=== PATIENT | male | born 1950 | race Caucasian/White ===

== ENCOUNTER 2018-02-17 11:32 | Observation (INO) | payer OTHER ==
[~2018-02-17] VITALS: Ht 180.3 cm; Wt 53.6 kg
[~2018-02-17 11:32] MED LIST: ACET325; ALBU90OI6 INH; ASPI325 PO; BEER; CEPH500 PO; CHLO25 PO; CLON.1 PO; CLOP75 PO; CYCL10 PO; DEPRESSION MED; DICL75ER; DOCU100 PO; GABA600 PO; HYDACE5 PO; LIDO5TP TOP; LOPE2C PO; LORA.5 PO; METCAR500; METO25ER PO; METO50 PO; METO50ER PO; MIRT15; MIRT15 PO; MIRT30; MIRT30ST; MULTCH; MULVITMINF PO; Naprosyn500 MG PO; Norco 10-325 T1 EACH PO; Norco 5-325 Ta1 EACH PO; OMEP20ER PO; OMEP40CA12 PO; ONDA4 PO; OXYACE7.5T PO; Omeprazole20 M1 PO; PROACE100 PO; PROM25 PO; RANI150; SUCR1SU PO; SULTRIDS PO; THIA100; TRAM50 PO; TRAZ50; TRAZ50 PO; UNKOWN B/P MED; Valium5 MG PO; [UNRECOGNIZED DRUG - CODE]; [UNRECOGNIZED DRUG - OTHER]; [UNRECOGNIZED DRUG - REMARK]
[2018-02-17] MEDS ORDERED: HYDR1TAB94 PO (11:42)
[2018-02-17] MEDS ORDERED: PRAZ1 PO (11:42)
[2018-02-17 12:08] LABS: BASOPHILS ABSOLUTE AUTO 0.03 K/mm3 (0.00-0.23); BASOPHILS PERCENT AUTO 0 % (0-2); EOSINOPHILS ABSOLUTE AUTO 0.07 K/mm3 (0.00-0.68); EOSINOPHILS PERCENT AUTO 1 % (0-6); IMMATURE GRAN ABSOLUTE AUTO 0.07 K/mm3 (0.00-0.10); IMMATURE GRAN PERCENT AUTO 1 % (0-1); LYMPHOCYTES ABSOLUTE AUTO 1.09 K/mm3 (0.84-5.20); LYMPHOCYTES PERCENT AUTO 9 % (21-46); MONOCYTES ABSOLUTE AUTO 1.54 K/mm3 (0.16-1.47); MONOCYTES PERCENT AUTO 13 % (4-13); Mean Corpuscular HGB 33.6 pg (26.0-34.0); Mean Corpuscular HGB Conc 33.3 g/dL (31.5-36.5); Mean Corpuscular Volume 101 fL (80-100); Mean Platelet Volume 10.9 fL (9.1-12.4); NEUTROPHILS ABSOLUTE AUTO 9.21 K/mm3 (1.96-9.15); NEUTROPHILS PERCENT AUTO 77 % (41-73); Platelet Count 293 K/mm3 (150-400); RDW Coefficient Variation 17.9 % (11.7-14.2); RDW Standard Deviation 65.8 fL (35.1-46.3); Red Blood Cell Count 3.57 M/mm3 (4.30-5.90); White Blood Cell Count 12.01 K/mm3 (4.00-11.30)
[2018-02-17 12:23] LABS: Alanine Aminotransfer (ALT/SGP 23 U/L (12-78); Albumin, Blood 3.1 g/dL (3.4-5.0); Albumin/Globulin Ratio 0.8 (0.8-1.8); Alk Phos 90 U/L (50-136); Anion Gap 7 mmol/L (6-16); Aspartate Aminotrans (AST/SGOT 25 U/L (12-37); Bilirubin, Total 0.3 mg/dL (0.1-1.0); Blood Urea Nitrogen 11 mg/dL (8-24); Bun/Creatinine Ratio 17.9 (12.0-20.0); CO2, Blood 29 mmol/L (21-32); Calcium, Blood 8.4 mg/dL (8.5-10.1); Chloride, Blood 98 mmol/L (98-108); Creatinine, Blood 0.62 mg/dL (0.60-1.20); Globulin, Blood 4.1 g/dL (2.2-4.0); Glomerular Filtration Rate >60 (60-); Glucose, Blood 125 mg/dL (70-99); International Normalized Ratio 1.03; Potassium, Blood 4.4 mmol/L (3.5-5.5); Prothrombin Time Results 10.7 Sec (9.7-11.5); Sodium, Blood 134 mmol/L (136-145); Total Protein, Blood 7.2 g/dL (6.4-8.2)
[2018-02-17] MEDS ORDERED: Norco 10-325 T1 EACH PO (17:03)
[2018-02-18 04:40] LABS: Hematocrit 31.7 % (37.0-53.0); Hemoglobin 10.6 g/dL (13.5-17.5); Mean Corpuscular HGB 33.8 pg (26.0-34.0); Mean Corpuscular HGB Conc 33.4 g/dL (31.5-36.5); Mean Corpuscular Volume 101 fL (80-100); Platelet Count 261 K/mm3 (150-400); RDW Coefficient Variation 17.7 % (11.7-14.2); Red Blood Cell Count 3.14 M/mm3 (4.30-5.90); White Blood Cell Count 11.18 K/mm3 (4.00-11.30)
[2018-02-19 04:06] LABS: Hematocrit 31.6 % (37.0-53.0); Hemoglobin 10.3 g/dL (13.5-17.5); Mean Corpuscular HGB 33.4 pg (26.0-34.0); Mean Corpuscular HGB Conc 32.6 g/dL (31.5-36.5); Mean Corpuscular Volume 103 fL (80-100); Mean Platelet Volume 10.4 fL (9.1-12.4); Platelet Count 244 K/mm3 (150-400); RDW Coefficient Variation 17.8 % (11.7-14.2); RDW Standard Deviation 67.1 fL (35.1-46.3); Red Blood Cell Count 3.08 M/mm3 (4.30-5.90); White Blood Cell Count 12.02 K/mm3 (4.00-11.30)
== END 2018-02-19 16:12 | disposition home or self-care (01) ==
LOC: ER 11:32 → PCU 11:33 → SURS 11:33 → PCU 16:41 → SURS 02-19 10:50
PROVIDERS: Emergency Medicine; Internal Medicine
PROC: 0D598ZZ Destruction of Duodenum, Via Natural or Artificial Opening Endoscopic (ICD-10-PCS; principal; 2018-02-17)
DX: K31.819 Angiodysplasia of stomach and duodenum without bleeding (principal); K61.0 Anal abscess; J44.9 Chronic obstructive pulmonary disease, unspecified; K92.2 Gastrointestinal hemorrhage, unspecified; I10 Essential (primary) hypertension; G89.29 Other chronic pain; I73.9 Peripheral vascular disease, unspecified; F17.210 Nicotine dependence, cigarettes, uncomplicated; Z95.5 Presence of coronary angioplasty implant and graft; Z87.19 Personal history of other diseases of the digestive system
CPT/HCPCS: 36415; 80053; 82272; 85025; 85027; 85610; 85730; 86850; 86900; 86901; 93005; 93010; 94640; 94760; 96361; 96365; 96366; 96375; 96376; 99285; C9113; G0378; J2405; J3010; J7030; J7120

== ENCOUNTER 2018-04-14 16:18 | Inpatient (IN) | payer OTHER ==
[~2018-04-14] VITALS: Ht 180.3 cm; Wt 49.4 kg
[~2018-04-14 16:18] MED LIST changes: +HYDR1TAB94 PO; +PRAZ1 PO
[2018-04-14] MEDS ORDERED: MIRT30 PO (16:41)
[2018-04-14 17:32] LABS: BASOPHILS ABSOLUTE AUTO 0.05 K/mm3 (0.00-0.23); BASOPHILS PERCENT AUTO 0 % (0-2); EOSINOPHILS PERCENT AUTO 0 % (0-6); Hematocrit 35.7 % (37.0-53.0); Hemoglobin 12.2 g/dL (13.5-17.5); IMMATURE GRAN ABSOLUTE AUTO 0.13 K/mm3 (0.00-0.10); IMMATURE GRAN PERCENT AUTO 1 % (0-1); LYMPHOCYTES ABSOLUTE AUTO 0.54 K/mm3 (0.84-5.20); LYMPHOCYTES PERCENT AUTO 3 % (21-46); MONOCYTES ABSOLUTE AUTO 2.03 K/mm3 (0.16-1.47); MONOCYTES PERCENT AUTO 11 % (4-13); Mean Corpuscular HGB 33.8 pg (26.0-34.0); Mean Corpuscular HGB Conc 34.2 g/dL (31.5-36.5); Mean Corpuscular Volume 99 fL (80-100); Mean Platelet Volume 10.5 fL (9.1-12.4); NEUTROPHILS ABSOLUTE AUTO 16.28 K/mm3 (1.96-9.15); NEUTROPHILS PERCENT AUTO 86 % (41-73); Platelet Count 288 K/mm3 (150-400); RDW Coefficient Variation 14.9 % (11.7-14.2); RDW Standard Deviation 52.8 fL (35.1-46.3); Red Blood Cell Count 3.61 M/mm3 (4.30-5.90); White Blood Cell Count 19.03 K/mm3 (4.00-11.30)
[2018-04-14 17:49] LABS: Alanine Aminotransfer (ALT/SGP 25 U/L (12-78); Albumin, Blood 3.5 g/dL (3.4-5.0); Albumin/Globulin Ratio 0.9 (0.8-1.8); Alk Phos 86 U/L (50-136); Anion Gap 12 mmol/L (6-16); Aspartate Aminotrans (AST/SGOT 31 U/L (12-37); Bilirubin, Total 0.4 mg/dL (0.1-1.0); Blood Urea Nitrogen 9 mg/dL (8-24); Bun/Creatinine Ratio 18.9 (12.0-20.0); CO2, Blood 30 mmol/L (21-32); Calcium, Blood 8.6 mg/dL (8.5-10.1); Chloride, Blood 88 mmol/L (98-108); Creatinine, Blood 0.48 mg/dL (0.60-1.20); Ethanol (Alcohol), Blood, Med 4 mg/dL; Globulin, Blood 3.8 g/dL (2.2-4.0); Glomerular Filtration Rate >60 (60-); Glucose, Blood 144 mg/dL (70-99); Potassium, Blood 3.7 mmol/L (3.5-5.5); Sodium, Blood 130 mmol/L (136-145); Total Protein, Blood 7.3 g/dL (6.4-8.2)
[2018-04-14 23:00] LABS: Source, Urine Clean Catch
[2018-04-14 23:02] LABS: Bilirubin, Urine Neg (Neg); Blood, Urine Neg (Neg); Glucose Qualitative, Urine Neg (Neg); Ketones, Urine Neg (Neg); Leukocyte Esterase, Urine Neg (Neg); Nitrite, Urine Neg (Neg); Protein, Urine Neg (Neg); Specific Gravity, Urine 1.015 (1.003-1.022); Urobilinogen, Urine NORM (Normal)
[2018-04-14 23:03] LABS: Appearance, Urine Clear (Clear); Color, Urine Yellow (P-Yellow)
[2018-04-14 23:14] LABS: U Amphetamine Screen Not Detected; U Barbituate Screen Not Detected; U Benzodiazapine Screen DETECTED; U Buprenorphine Screen Not Detected; U Cannabinoids Screen DETECTED; U Cocaine Screen Not Detected; U Methadone Screen Not Detected; U Methamphetamine Screen Not Detected; U Opiates Screen Not Detected; U Oxycodone Screen Not Detected; U Phencyclidine Screen Not Detected; U Propoxyphene Screen Not Detected
[2018-04-15 06:25] LABS: Hematocrit 33.9 % (37.0-53.0); Hemoglobin 11.5 g/dL (13.5-17.5); Mean Corpuscular HGB 34.2 pg (26.0-34.0); Mean Corpuscular HGB Conc 33.9 g/dL (31.5-36.5); Mean Corpuscular Volume 101 fL (80-100); Mean Platelet Volume 9.8 fL (9.1-12.4); Platelet Count 232 K/mm3 (150-400); RDW Coefficient Variation 15.2 % (11.7-14.2); RDW Standard Deviation 55.7 fL (35.1-46.3); Red Blood Cell Count 3.36 M/mm3 (4.30-5.90); White Blood Cell Count 19.73 K/mm3 (4.00-11.30)
[2018-04-15 06:49] LABS: Alanine Aminotransfer (ALT/SGP 22 U/L (12-78); Albumin, Blood 2.9 g/dL (3.4-5.0); Alk Phos 73 U/L (50-136); Anion Gap 6 mmol/L (6-16); Aspartate Aminotrans (AST/SGOT 20 U/L (12-37); Bilirubin, Total 0.5 mg/dL (0.1-1.0); Blood Urea Nitrogen 13 mg/dL (8-24); Bun/Creatinine Ratio 24.7 (12.0-20.0); CO2, Blood 25 mmol/L (21-32); Calcium, Blood 7.3 mg/dL (8.5-10.1); Chloride, Blood 102 mmol/L (98-108); Creatinine, Blood 0.53 mg/dL (0.60-1.20); Glomerular Filtration Rate >60 (60-); Glucose, Blood 114 mg/dL (70-99); Sodium, Blood 133 mmol/L (136-145); Total Protein, Blood 5.9 g/dL (6.4-8.2)
[2018-04-16 04:38] LABS: Hematocrit 32.7 % (37.0-53.0); Hemoglobin 10.8 g/dL (13.5-17.5); Mean Corpuscular HGB 34.3 pg (26.0-34.0); Mean Platelet Volume 10.2 fL (9.1-12.4); Platelet Count 212 K/mm3 (150-400); RDW Coefficient Variation 15.5 % (11.7-14.2); RDW Standard Deviation 57.5 fL (35.1-46.3); Red Blood Cell Count 3.15 M/mm3 (4.30-5.90); White Blood Cell Count 29.08 K/mm3 (4.00-11.30)
[2018-04-16 04:40] LABS: Mean Corpuscular Volume 104 fL (80-100)
[2018-04-16 04:48] LABS: Anion Gap 8 mmol/L (6-16); Blood Urea Nitrogen 11 mg/dL (8-24); Bun/Creatinine Ratio 22.2 (12.0-20.0); CO2, Blood 24 mmol/L (21-32); Calcium, Blood 7.4 mg/dL (8.5-10.1); Chloride, Blood 104 mmol/L (98-108); Glomerular Filtration Rate >60 (60-); Glucose, Blood 88 mg/dL (70-99); Potassium, Blood 3.5 mmol/L (3.5-5.5); Sodium, Blood 136 mmol/L (136-145)
[2018-04-16 09:28] LABS: Free Thyroxine 1.46 ng/dL (0.70-1.60); Troponin I 0.022 ng/mL (0.000-0.040)
[2018-04-16 09:31] LABS: Thyroid Stimulating Hormone 1.93 uIU/mL (0.360-4.800); Triiodothyronine, Free 2.43 pg/mL (2.18-3.98)
[2018-04-17 04:06] LABS: BASOPHILS ABSOLUTE AUTO 0.04 K/mm3 (0.00-0.23); BASOPHILS PERCENT AUTO 0 % (0-2); EOSINOPHILS PERCENT AUTO 0 % (0-6); Hematocrit 31.1 % (37.0-53.0); Hemoglobin 10.2 g/dL (13.5-17.5); IMMATURE GRAN PERCENT AUTO 1 % (0-1); LYMPHOCYTES PERCENT AUTO 4 % (21-46); MONOCYTES ABSOLUTE AUTO 0.89 K/mm3 (0.16-1.47); MONOCYTES PERCENT AUTO 5 % (4-13); Mean Corpuscular HGB 33.8 pg (26.0-34.0); Mean Corpuscular HGB Conc 32.8 g/dL (31.5-36.5); Mean Corpuscular Volume 103 fL (80-100); Mean Platelet Volume 9.9 fL (9.1-12.4); NEUTROPHILS ABSOLUTE AUTO 16.48 K/mm3 (1.96-9.15); NEUTROPHILS PERCENT AUTO 91 % (41-73); Platelet Count 216 K/mm3 (150-400); RDW Coefficient Variation 15.1 % (11.7-14.2); RDW Standard Deviation 56.5 fL (35.1-46.3); Red Blood Cell Count 3.02 M/mm3 (4.30-5.90); White Blood Cell Count 18.21 K/mm3 (4.00-11.30)
[2018-04-17 04:24] LABS: Albumin, Blood 2.6 g/dL (3.4-5.0); Anion Gap 12 mmol/L (6-16); Blood Urea Nitrogen 14 mg/dL (8-24); CO2, Blood 22 mmol/L (21-32); Calcium, Blood 7.6 mg/dL (8.5-10.1); Chloride, Blood 103 mmol/L (98-108); Creatinine, Blood 0.58 mg/dL (0.60-1.20); Glomerular Filtration Rate >60 (60-); Glucose, Blood 77 mg/dL (70-99); Phosphorus, Blood 2.6 mg/dL (2.5-4.9); Potassium, Blood 3.3 mmol/L (3.5-5.5); Sodium, Blood 137 mmol/L (136-145)
[2018-04-17] MEDS ORDERED: DOCU100 PO (09:43)
[2018-04-17] MEDS ORDERED: DILT120 PO (09:43)
[2018-04-17] MEDS ORDERED: Percocet 5-3251 EACH PO (09:44)
[2018-04-17] MEDS ORDERED: AMOX875 PO (09:45)
[2018-04-17] MEDS ORDERED: PANT40 PO (12:54)
[2018-04-17] MEDS ORDERED: Norco 10-325 T1 EACH PO (13:01)
== END 2018-04-17 13:25 | disposition home or self-care (01) | DRG 896 ==
LOC: ER 16:18 → PCU 16:19 → SURS 04-17 10:05
PROVIDERS: Emergency Medicine; Internal Medicine
DX: F11.23 Opioid dependence with withdrawal (principal); J69.0 Pneumonitis due to inhalation of food and vomit; K22.6 Gastro-esophageal laceration-hemorrhage syndrome; F13.20 Sedative, hypnotic or anxiolytic dependence, uncomplicated; R64 Cachexia; Q27.30 Arteriovenous malformation, site unspecified; E87.1 Hypo-osmolality and hyponatremia; K92.0 Hematemesis; Z68.1 Body mass index [BMI] 19.9 or less, adult; E86.0 Dehydration; F10.239 Alcohol dependence with withdrawal, unspecified; I10 Essential (primary) hypertension; F41.9 Anxiety disorder, unspecified; I73.9 Peripheral vascular disease, unspecified; F17.210 Nicotine dependence, cigarettes, uncomplicated; I48.0 Paroxysmal atrial fibrillation; G89.29 Other chronic pain; Z87.19 Personal history of other diseases of the digestive system
CPT/HCPCS: 36415; 71045; 71046; 80048; 80053; 80069; 81003; 83690; 84439; 84443; 84481; 84484; 85025; 85027; 93005; 93010; 93306; 94640; 94760; 96374; 96375; 96376; 99285; C9113; G0378; G0480; J2060; J2405; J2543; J2550; J2765; J7030

== ENCOUNTER 2018-04-19 15:06 | Emergency (ER) | payer SELFPAY ==
[~2018-04-19] VITALS: Ht 180.3 cm; Wt 56.7 kg
[~2018-04-19 15:06] MED LIST changes: +AMOX875 PO; +DILT120 PO; +MIRT30 PO; +PANT40 PO; +Percocet 5-3251 EACH PO
[2018-04-19 15:43] LABS: BASOPHILS ABSOLUTE AUTO 0.03 K/mm3 (0.00-0.23); BASOPHILS PERCENT AUTO 0 % (0-2); EOSINOPHILS ABSOLUTE AUTO 0.12 K/mm3 (0.00-0.68); EOSINOPHILS PERCENT AUTO 1 % (0-6); Hematocrit 31.6 % (37.0-53.0); Hemoglobin 10.6 g/dL (13.5-17.5); IMMATURE GRAN ABSOLUTE AUTO 0.08 K/mm3 (0.00-0.10); IMMATURE GRAN PERCENT AUTO 1 % (0-1); LYMPHOCYTES ABSOLUTE AUTO 1.01 K/mm3 (0.84-5.20); LYMPHOCYTES PERCENT AUTO 12 % (21-46); MONOCYTES ABSOLUTE AUTO 1.08 K/mm3 (0.16-1.47); MONOCYTES PERCENT AUTO 13 % (4-13); Mean Corpuscular HGB 33.9 pg (26.0-34.0); Mean Corpuscular HGB Conc 33.5 g/dL (31.5-36.5); Mean Corpuscular Volume 101 fL (80-100); Mean Platelet Volume 10.1 fL (9.1-12.4); NEUTROPHILS ABSOLUTE AUTO 6.28 K/mm3 (1.96-9.15); NEUTROPHILS PERCENT AUTO 73 % (41-73); Platelet Count 235 K/mm3 (150-400); RDW Coefficient Variation 14.7 % (11.7-14.2); RDW Standard Deviation 54.3 fL (35.1-46.3); Red Blood Cell Count 3.13 M/mm3 (4.30-5.90)
[2018-04-19 15:57] LABS: Anion Gap 8 mmol/L (6-16); Blood Urea Nitrogen 8 mg/dL (8-24); Bun/Creatinine Ratio 15.6 (12.0-20.0); CO2, Blood 28 mmol/L (21-32); Calcium, Blood 8.4 mg/dL (8.5-10.1); Chloride, Blood 97 mmol/L (98-108); Creatinine, Blood 0.51 mg/dL (0.60-1.20); Glomerular Filtration Rate >60 (60-); Glucose, Blood 125 mg/dL (70-99); Potassium, Blood 3.5 mmol/L (3.5-5.5); Sodium, Blood 133 mmol/L (136-145); Troponin I <0.015 ng/mL (0.000-0.040)
[2018-04-19] MEDS ORDERED: Augmentin 875-1 EACH PO (16:14)
[2018-04-19] MEDS ORDERED: DILT120 PO (16:14)
== END 2018-04-19 17:23 | disposition home or self-care (01) ==
LOC: ER 15:06
PROVIDERS: Emergency Medicine
DX: I48.0 Paroxysmal atrial fibrillation (principal); J18.9 Pneumonia, unspecified organism; I10 Essential (primary) hypertension; F41.9 Anxiety disorder, unspecified; F17.210 Nicotine dependence, cigarettes, uncomplicated; Z79.899 Other long term (current) drug therapy; Z79.51 Long term (current) use of inhaled steroids
CPT/HCPCS: 36415; 71046; 80048; 84484; 85025; 93005; 93010; 99283

== ENCOUNTER 2018-05-04 14:48 | Emergency (ER) | payer SELFPAY ==
[~2018-05-04] VITALS: Ht 167.6 cm; Wt 54.4 kg
[~2018-05-04 14:48] MED LIST changes: +Augmentin 875-1 EACH PO
[2018-05-04 15:50] LABS: Calcium, Ionized (POC) 1.02 mmol/L (1.10-1.46); Chloride (POC) 100 mmol/L (98-108); Creatinine (POC) 0.6 mg/dL (0.8-1.3); Glucose (ISTAT POC) 106 mg/dL (70-99); Hemoglobin (POC) 10.5 g/dL (13.5-17.5); Potassium (POC) 4.4 mmol/L (3.5-5.5); Sodium (POC) 135 mmol/L (135-148); Total CO2 (POC) 26 mmol/L (21-32)
== END 2018-05-04 18:21 | disposition home or self-care (01) ==
LOC: ER 14:48
PROVIDERS: Internal Medicine
DX: F41.9 Anxiety disorder, unspecified (principal); E86.0 Dehydration; R53.1 Weakness; I48.0 Paroxysmal atrial fibrillation; F17.210 Nicotine dependence, cigarettes, uncomplicated; Z79.899 Other long term (current) drug therapy
CPT/HCPCS: 36415; 80047; 85014; 93005; 93010; 96374; 99283; J2405; J7120

== ENCOUNTER 2018-05-20 04:04 | Inpatient (IN) | payer OTHER ==
[~2018-05-20] VITALS: Ht 180.3 cm; Wt 53.9 kg
[2018-05-20 04:22] LABS: BASOPHILS ABSOLUTE AUTO 0.04 K/mm3 (0.00-0.23); BASOPHILS PERCENT AUTO 0 % (0-2); EOSINOPHILS PERCENT AUTO 0 % (0-6); Hematocrit 34.6 % (37.0-53.0); Hemoglobin 11.7 g/dL (13.5-17.5); IMMATURE GRAN ABSOLUTE AUTO 0.08 K/mm3 (0.00-0.10); IMMATURE GRAN PERCENT AUTO 1 % (0-1); LYMPHOCYTES ABSOLUTE AUTO 0.78 K/mm3 (0.84-5.20); LYMPHOCYTES PERCENT AUTO 5 % (21-46); MONOCYTES ABSOLUTE AUTO 1.02 K/mm3 (0.16-1.47); MONOCYTES PERCENT AUTO 7 % (4-13); Mean Corpuscular HGB Conc 33.8 g/dL (31.5-36.5); Mean Corpuscular Volume 101 fL (80-100); Mean Platelet Volume 9.4 fL (9.1-12.4); NEUTROPHILS ABSOLUTE AUTO 13.12 K/mm3 (1.96-9.15); NEUTROPHILS PERCENT AUTO 87 % (41-73); NRBC ABSOLUTE 0.03 K/mm3 (0.00-0.02); NRBC Auto 0.2 /100 WBC (0.0-0.2); Platelet Count 365 K/mm3 (150-400); RDW Coefficient Variation 16.1 % (11.7-14.2); RDW Standard Deviation 59.2 fL (35.1-46.3); Red Blood Cell Count 3.44 M/mm3 (4.30-5.90); White Blood Cell Count 15.04 K/mm3 (4.00-11.30)
[2018-05-20 04:43] LABS: Alanine Aminotransfer (ALT/SGP 34 U/L (12-78); Albumin, Blood 3.9 g/dL (3.4-5.0); Alk Phos 118 U/L (50-136); Anion Gap 9 mmol/L (6-16); Aspartate Aminotrans (AST/SGOT 23 U/L (12-37); Bilirubin, Total 0.7 mg/dL (0.1-1.0); Blood Urea Nitrogen 17 mg/dL (8-24); Bun/Creatinine Ratio 30.1 (12.0-20.0); CO2, Blood 31 mmol/L (21-32); Calcium, Blood 8.4 mg/dL (8.5-10.1); Chloride, Blood 91 mmol/L (98-108); Creatinine, Blood 0.56 mg/dL (0.60-1.20); Globulin, Blood 3.8 g/dL (2.2-4.0); Glomerular Filtration Rate >60 (60-); Glucose, Blood 148 mg/dL (70-99); Potassium, Blood 3.5 mmol/L (3.5-5.5); Sodium, Blood 131 mmol/L (136-145); Total Protein, Blood 7.7 g/dL (6.4-8.2); Troponin I <0.015 ng/mL (0.000-0.040)
[2018-05-20] MEDS ORDERED: DIAZ5 PO (10:08)
[2018-05-20] MEDS ORDERED: Norco 10-325 T1 EACH PO (10:08)
[2018-05-20] MEDS ORDERED: COMBIVENT RESPIM4 GM INH (10:09)
[2018-05-21 03:31] LABS: Hematocrit 28.2 % (37.0-53.0); Hemoglobin 9.3 g/dL (13.5-17.5); Mean Corpuscular HGB 33.6 pg (26.0-34.0); Mean Corpuscular Volume 102 fL (80-100); Mean Platelet Volume 9.8 fL (9.1-12.4); NRBC ABSOLUTE 0.07 K/mm3 (0.00-0.02); NRBC Auto 0.7 /100 WBC (0.0-0.2); Platelet Count 332 K/mm3 (150-400); RDW Coefficient Variation 16.3 % (11.7-14.2); RDW Standard Deviation 61.2 fL (35.1-46.3); Red Blood Cell Count 2.77 M/mm3 (4.30-5.90); White Blood Cell Count 10.47 K/mm3 (4.00-11.30)
[2018-05-21 03:51] LABS: Alanine Aminotransfer (ALT/SGP 37 U/L (12-78); Albumin, Blood 3.2 g/dL (3.4-5.0); Albumin/Globulin Ratio 0.9 (0.8-1.8); Alk Phos 92 U/L (50-136); Anion Gap 11 mmol/L (6-16); Aspartate Aminotrans (AST/SGOT 22 U/L (12-37); Bilirubin, Total 0.4 mg/dL (0.1-1.0); Blood Urea Nitrogen 21 mg/dL (8-24); Bun/Creatinine Ratio 41.2 (12.0-20.0); CO2, Blood 23 mmol/L (21-32); Calcium, Blood 7.1 mg/dL (8.5-10.1); Chloride, Blood 102 mmol/L (98-108); Creatinine, Blood 0.51 mg/dL (0.60-1.20); Globulin, Blood 3.5 g/dL (2.2-4.0); Glomerular Filtration Rate >60 (60-); Glucose, Blood 127 mg/dL (70-99); Potassium, Blood 3.6 mmol/L (3.5-5.5); Sodium, Blood 136 mmol/L (136-145); Total Protein, Blood 6.7 g/dL (6.4-8.2)
[2018-05-21 04:14] LABS: BAND PERCENT MAN 16 % (0-8); BASOPHILS PERCENT MAN 0 % (0-2); EOSINOPHILS PERCENT MAN 0 % (0-6); LYMPHOCYTES PERCENT MAN 2 % (21-46); MONOCYTES ABSOLUTE MAN 0.52 K/mm3 (0.16-1.47); MONOCYTES PERCENT MAN 5 % (4-13); MYELOCYTE PERCENT MAN 1 % (0-0); NEUTROPHILS ABSOLUTE MAN 9.63 K/mm3 (1.96-9.15); SEG NEUTROPHILS PERCENT MAN 76 % (41-73); TOTAL CELLS COUNTED 100
[2018-05-22 04:36] LABS: BASOPHILS ABSOLUTE AUTO 0.01 K/mm3 (0.00-0.23); BASOPHILS PERCENT AUTO 0 % (0-2); EOSINOPHILS PERCENT AUTO 0 % (0-6); Hemoglobin 7.3 g/dL (13.5-17.5); IMMATURE GRAN ABSOLUTE AUTO 0.07 K/mm3 (0.00-0.10); IMMATURE GRAN PERCENT AUTO 1 % (0-1); LYMPHOCYTES ABSOLUTE AUTO 0.53 K/mm3 (0.84-5.20); LYMPHOCYTES PERCENT AUTO 5 % (21-46); MONOCYTES ABSOLUTE AUTO 0.78 K/mm3 (0.16-1.47); MONOCYTES PERCENT AUTO 7 % (4-13); Mean Corpuscular HGB 33.3 pg (26.0-34.0); Mean Corpuscular HGB Conc 33.2 g/dL (31.5-36.5); Mean Corpuscular Volume 101 fL (80-100); NEUTROPHILS PERCENT AUTO 88 % (41-73); NRBC Auto 0.8 /100 WBC (0.0-0.2); Platelet Count 276 K/mm3 (150-400); RDW Coefficient Variation 16.6 % (11.7-14.2); RDW Standard Deviation 59.4 fL (35.1-46.3); Red Blood Cell Count 2.19 M/mm3 (4.30-5.90); White Blood Cell Count 11.79 K/mm3 (4.00-11.30)
[2018-05-22 04:55] LABS: Alanine Aminotransfer (ALT/SGP 30 U/L (12-78); Albumin, Blood 2.7 g/dL (3.4-5.0); Alk Phos 65 U/L (50-136); Anion Gap 7 mmol/L (6-16); Aspartate Aminotrans (AST/SGOT 19 U/L (12-37); Bilirubin, Total 0.5 mg/dL (0.1-1.0); Blood Urea Nitrogen 16 mg/dL (8-24); Bun/Creatinine Ratio 36.4 (12.0-20.0); CO2, Blood 25 mmol/L (21-32); Calcium, Blood 6.9 mg/dL (8.5-10.1); Chloride, Blood 104 mmol/L (98-108); Creatinine, Blood 0.44 mg/dL (0.60-1.20); Globulin, Blood 2.6 g/dL (2.2-4.0); Glomerular Filtration Rate >60 (60-); Glucose, Blood 118 mg/dL (70-99); Potassium, Blood 3.3 mmol/L (3.5-5.5); Sodium, Blood 136 mmol/L (136-145); Total Protein, Blood 5.3 g/dL (6.4-8.2)
[2018-05-22 15:02] LABS: Hematocrit 22.5 % (37.0-53.0); Hemoglobin 7.4 g/dL (13.5-17.5); Mean Corpuscular HGB 34.3 pg (26.0-34.0); Mean Corpuscular HGB Conc 32.9 g/dL (31.5-36.5); Mean Platelet Volume 9.8 fL (9.1-12.4); NRBC ABSOLUTE 0.09 K/mm3 (0.00-0.02); NRBC Auto 0.6 /100 WBC (0.0-0.2); Platelet Count 287 K/mm3 (150-400); RDW Coefficient Variation 16.9 % (11.7-14.2); RDW Standard Deviation 63.6 fL (35.1-46.3); Red Blood Cell Count 2.16 M/mm3 (4.30-5.90); White Blood Cell Count 15.73 K/mm3 (4.00-11.30)
[2018-05-22 15:05] LABS: Mean Corpuscular Volume 104 fL (80-100)
[2018-05-23 04:52] LABS: BASOPHILS ABSOLUTE AUTO 0.01 K/mm3 (0.00-0.23); BASOPHILS PERCENT AUTO 0 % (0-2); EOSINOPHILS PERCENT AUTO 0 % (0-6); Hematocrit 22.7 % (37.0-53.0); Hemoglobin 7.6 g/dL (13.5-17.5); IMMATURE GRAN ABSOLUTE AUTO 0.08 K/mm3 (0.00-0.10); IMMATURE GRAN PERCENT AUTO 1 % (0-1); LYMPHOCYTES ABSOLUTE AUTO 0.55 K/mm3 (0.84-5.20); LYMPHOCYTES PERCENT AUTO 5 % (21-46); MONOCYTES ABSOLUTE AUTO 0.61 K/mm3 (0.16-1.47); MONOCYTES PERCENT AUTO 5 % (4-13); Mean Corpuscular HGB 34.2 pg (26.0-34.0); Mean Corpuscular HGB Conc 33.5 g/dL (31.5-36.5); Mean Corpuscular Volume 102 fL (80-100); Mean Platelet Volume 9.7 fL (9.1-12.4); NEUTROPHILS ABSOLUTE AUTO 10.87 K/mm3 (1.96-9.15); NEUTROPHILS PERCENT AUTO 90 % (41-73); NRBC ABSOLUTE 0.05 K/mm3 (0.00-0.02); NRBC Auto 0.4 /100 WBC (0.0-0.2); Platelet Count 321 K/mm3 (150-400); RDW Coefficient Variation 16.8 % (11.7-14.2); RDW Standard Deviation 61.9 fL (35.1-46.3); Red Blood Cell Count 2.22 M/mm3 (4.30-5.90); White Blood Cell Count 12.12 K/mm3 (4.00-11.30)
[2018-05-23 05:22] LABS: Alanine Aminotransfer (ALT/SGP 28 U/L (12-78); Albumin, Blood 2.7 g/dL (3.4-5.0); Alk Phos 66 U/L (50-136); Anion Gap 9 mmol/L (6-16); Aspartate Aminotrans (AST/SGOT 22 U/L (12-37); Bilirubin, Total 0.4 mg/dL (0.1-1.0); Blood Urea Nitrogen 12 mg/dL (8-24); Bun/Creatinine Ratio 24.5 (12.0-20.0); CO2, Blood 27 mmol/L (21-32); Calcium, Blood 7.2 mg/dL (8.5-10.1); Chloride, Blood 102 mmol/L (98-108); Creatinine, Blood 0.49 mg/dL (0.60-1.20); Globulin, Blood 2.6 g/dL (2.2-4.0); Glomerular Filtration Rate >60 (60-); Glucose, Blood 110 mg/dL (70-99); Potassium, Blood 3.1 mmol/L (3.5-5.5); Sodium, Blood 138 mmol/L (136-145); Total Protein, Blood 5.3 g/dL (6.4-8.2)
[2018-05-24 04:59] LABS: BASOPHILS ABSOLUTE AUTO 0.02 K/mm3 (0.00-0.23); BASOPHILS PERCENT AUTO 0 % (0-2); EOSINOPHILS PERCENT AUTO 0 % (0-6); Hematocrit 26.7 % (37.0-53.0); Hemoglobin 8.7 g/dL (13.5-17.5); IMMATURE GRAN ABSOLUTE AUTO 0.13 K/mm3 (0.00-0.10); IMMATURE GRAN PERCENT AUTO 1 % (0-1); LYMPHOCYTES ABSOLUTE AUTO 1.88 K/mm3 (0.84-5.20); LYMPHOCYTES PERCENT AUTO 16 % (21-46); MONOCYTES ABSOLUTE AUTO 1.28 K/mm3 (0.16-1.47); MONOCYTES PERCENT AUTO 11 % (4-13); Mean Corpuscular HGB 34.3 pg (26.0-34.0); Mean Corpuscular HGB Conc 32.6 g/dL (31.5-36.5); Mean Platelet Volume 9.6 fL (9.1-12.4); NEUTROPHILS ABSOLUTE AUTO 8.41 K/mm3 (1.96-9.15); NEUTROPHILS PERCENT AUTO 72 % (41-73); NRBC ABSOLUTE 0.08 K/mm3 (0.00-0.02); NRBC Auto 0.7 /100 WBC (0.0-0.2); Platelet Count 397 K/mm3 (150-400); RDW Standard Deviation 64.6 fL (35.1-46.3); Red Blood Cell Count 2.54 M/mm3 (4.30-5.90); White Blood Cell Count 11.72 K/mm3 (4.00-11.30)
[2018-05-24 05:01] LABS: Mean Corpuscular Volume 105 fL (80-100)
[2018-05-24 05:33] LABS: Anion Gap 10 mmol/L (6-16); Blood Urea Nitrogen 13 mg/dL (8-24); CO2, Blood 26 mmol/L (21-32); Calcium, Blood 7.3 mg/dL (8.5-10.1); Chloride, Blood 101 mmol/L (98-108); Creatinine, Blood 0.48 mg/dL (0.60-1.20); Glomerular Filtration Rate >60 (60-); Glucose, Blood 78 mg/dL (70-99); Sodium, Blood 137 mmol/L (136-145)
[2018-05-25] MEDS ORDERED: PRAZ2 PO (09:12)
[2018-05-26 04:47] LABS: BASOPHILS ABSOLUTE AUTO 0.01 K/mm3 (0.00-0.23); BASOPHILS PERCENT AUTO 0 % (0-2); EOSINOPHILS ABSOLUTE AUTO 0.04 K/mm3 (0.00-0.68); EOSINOPHILS PERCENT AUTO 1 % (0-6); Hematocrit 25.6 % (37.0-53.0); Hemoglobin 8.4 g/dL (13.5-17.5); IMMATURE GRAN ABSOLUTE AUTO 0.09 K/mm3 (0.00-0.10); IMMATURE GRAN PERCENT AUTO 1 % (0-1); LYMPHOCYTES PERCENT AUTO 26 % (21-46); MONOCYTES PERCENT AUTO 8 % (4-13); Mean Corpuscular HGB 34.1 pg (26.0-34.0); Mean Corpuscular HGB Conc 32.8 g/dL (31.5-36.5); Mean Corpuscular Volume 104 fL (80-100); Mean Platelet Volume 8.8 fL (9.1-12.4); NEUTROPHILS ABSOLUTE AUTO 4.61 K/mm3 (1.96-9.15); NEUTROPHILS PERCENT AUTO 64 % (41-73); Platelet Count 382 K/mm3 (150-400); RDW Standard Deviation 64.4 fL (35.1-46.3); Red Blood Cell Count 2.46 M/mm3 (4.30-5.90); White Blood Cell Count 7.25 K/mm3 (4.00-11.30)
[2018-05-26 05:05] LABS: Anion Gap 6 mmol/L (6-16); Blood Urea Nitrogen 10 mg/dL (8-24); Bun/Creatinine Ratio 15.7 (12.0-20.0); CO2, Blood 31 mmol/L (21-32); Calcium, Blood 7.8 mg/dL (8.5-10.1); Chloride, Blood 102 mmol/L (98-108); Creatinine, Blood 0.64 mg/dL (0.60-1.20); Glomerular Filtration Rate >60 (60-); Glucose, Blood 84 mg/dL (70-99); Potassium, Blood 4.1 mmol/L (3.5-5.5); Sodium, Blood 139 mmol/L (136-145)
[2018-05-26] MEDS ORDERED: Tylenol325 MG PO (10:53)
[2018-05-26] MEDS ORDERED: TAMS.4ER PO (10:54)
[2018-05-26] MEDS ORDERED: PROM25 PO (10:55)
[2018-05-26] MEDS ORDERED: K-Dur20 MEQ PO (10:56)
[2018-05-26] MEDS ORDERED: Nitrostat0.4 MG SL (10:56)
[2018-05-26] MEDS ORDERED: ONDA4ODT MM (10:57)
[2018-05-26] MEDS ORDERED: Nicoderm Cq1 EAC1 TOP (10:58)
[2018-05-26] MEDS ORDERED: MIRT30 PO (10:59)
[2018-05-26] MEDS ORDERED: Donnatal E16.2 MG/5 PO (11:02)
[2018-05-26] MEDS ORDERED: ALBU2.5V5 NEB (11:04)
== END 2018-05-26 12:32 | DRG 189 ==
LOC: ER 04:04 → PCU 08:01 → MEDS 08:01 → PCU 09:48 → MEDS 05-22 18:02 → ENPENDDIS 05-26 10:00 → MEDS 05-26 12:32
PROVIDERS: Emergency Medicine; Family Medicine
DX: J96.00 Acute respiratory failure, unspecified whether with hypoxia or hypercapnia (principal); I74.5 Embolism and thrombosis of iliac artery; J44.1 Chronic obstructive pulmonary disease with (acute) exacerbation; E87.1 Hypo-osmolality and hyponatremia; I77.4 Celiac artery compression syndrome; I48.91 Unspecified atrial fibrillation; E86.0 Dehydration; K21.0 Gastro-esophageal reflux disease with esophagitis; R11.2 Nausea with vomiting, unspecified; R19.7 Diarrhea, unspecified; I10 Essential (primary) hypertension; G89.29 Other chronic pain; F17.200 Nicotine dependence, unspecified, uncomplicated; D64.9 Anemia, unspecified; Z95.5 Presence of coronary angioplasty implant and graft; Z95.828 Presence of other vascular implants and grafts; Z79.899 Other long term (current) drug therapy; R53.81 Other malaise; K80.80 Other cholelithiasis without obstruction
CPT/HCPCS: 36415; 71046; 71275; 74018; 74175; 74176; 76705; 80048; 80053; 82947; 83605; 83690; 84484; 85025; 85027; 86850; 86900; 86901; 93005; 93010; 94640; 94760; 96365; 96375; 96376; 97110; 97116; 97161; 97166; 97530; 97535; 99285-25; C9113; G8978; G8979; G8987; G8988; J0360; J0696; J1956; J2405; J2550; J2765; J2930; J3010; J3490; J7030; Q9967

== ENCOUNTER 2018-07-11 11:43 | Inpatient (IN) | payer OTHER ==
[~2018-07-11] VITALS: Ht 180.3 cm; Wt 52.3 kg
[~2018-07-11 11:43] MED LIST changes: +ALBU2.5V5 NEB; +COMBIVENT RESPIM4 GM INH; +DIAZ5 PO; +Donnatal E16.2 MG/5 PO; +K-Dur20 MEQ PO; +Nicoderm Cq1 EAC1 TOP; +Nitrostat0.4 MG SL; +ONDA4ODT MM; +PRAZ2 PO; +TAMS.4ER PO; +Tylenol325 MG PO
[2018-07-11] MEDS ORDERED: IBUP400 PO (12:08)
[2018-07-11 12:26] LABS: PCO2 Arterial 33.4 mmHg (35-45); PO2 Arterial 78.2 mmHg (80-100)
[2018-07-11 12:32] LABS: BASOPHILS ABSOLUTE AUTO 0.05 K/mm3 (0.00-0.23); BASOPHILS PERCENT AUTO 0 % (0-2); EOSINOPHILS PERCENT AUTO 0 % (0-6); Hematocrit 31.5 % (37.0-53.0); IMMATURE GRAN PERCENT AUTO 1 % (0-1); LYMPHOCYTES ABSOLUTE AUTO 1.31 K/mm3 (0.84-5.20); LYMPHOCYTES PERCENT AUTO 5 % (21-46); MONOCYTES ABSOLUTE AUTO 2.15 K/mm3 (0.16-1.47); MONOCYTES PERCENT AUTO 8 % (4-13); Mean Corpuscular HGB 30.2 pg (26.0-34.0); Mean Corpuscular HGB Conc 31.7 g/dL (31.5-36.5); Mean Corpuscular Volume 95 fL (80-100); Mean Platelet Volume 9.9 fL (9.1-12.4); NEUTROPHILS ABSOLUTE AUTO 21.89 K/mm3 (1.96-9.15); NEUTROPHILS PERCENT AUTO 86 % (41-73); NRBC ABSOLUTE 0.07 K/mm3 (0.00-0.02); NRBC Auto 0.3 /100 WBC (0.0-0.2); Platelet Count 593 K/mm3 (150-400); RDW Coefficient Variation 20.5 % (11.7-14.2); RDW Standard Deviation 72.5 fL (35.1-46.3); Red Blood Cell Count 3.31 M/mm3 (4.30-5.90)
[2018-07-11 12:52] LABS: Alanine Aminotransfer (ALT/SGP 26 U/L (12-78); Albumin, Blood 3.4 g/dL (3.4-5.0); Albumin/Globulin Ratio 0.8 (0.8-1.8); Alk Phos 72 U/L (50-136); Anion Gap 7 mmol/L (6-16); Aspartate Aminotrans (AST/SGOT 33 U/L (12-37); Bilirubin, Total 0.4 mg/dL (0.1-1.0); Blood Urea Nitrogen 28 mg/dL (8-24); Bun/Creatinine Ratio 37.4 (12.0-20.0); CO2, Blood 28 mmol/L (21-32); Calcium, Blood 8.1 mg/dL (8.5-10.1); Chloride, Blood 96 mmol/L (98-108); Creatinine, Blood 0.75 mg/dL (0.60-1.20); Glomerular Filtration Rate >60 (60-); Glucose, Blood 114 mg/dL (70-99); Potassium, Blood 4.3 mmol/L (3.5-5.5); Sodium, Blood 131 mmol/L (136-145); Total Protein, Blood 7.4 g/dL (6.4-8.2); Troponin I <0.015 ng/mL (0.000-0.040)
[2018-07-11 13:02] LABS: Ethanol (Alcohol), Blood, Med <3 mg/dL
[2018-07-11 13:26] LABS: Acetaminophen, Random <2.0 ug/mL (10.0-30.0)
[2018-07-11 14:14] LABS: Hematocrit 30.3 % (37.0-53.0); Hemoglobin 9.6 g/dL (13.5-17.5)
[2018-07-11 17:56] LABS: Hematocrit 25.4 % (37.0-53.0)
[2018-07-11 20:19] LABS: Hemoglobin 7.7 g/dL (13.5-17.5)
[2018-07-12 04:22] LABS: BASOPHILS ABSOLUTE AUTO 0.03 K/mm3 (0.00-0.23); BASOPHILS PERCENT AUTO 0 % (0-2); EOSINOPHILS PERCENT AUTO 0 % (0-6); Hematocrit 23.6 % (37.0-53.0); Hemoglobin 7.2 g/dL (13.5-17.5); IMMATURE GRAN ABSOLUTE AUTO 0.06 K/mm3 (0.00-0.10); IMMATURE GRAN PERCENT AUTO 1 % (0-1); LYMPHOCYTES ABSOLUTE AUTO 1.82 K/mm3 (0.84-5.20); LYMPHOCYTES PERCENT AUTO 15 % (21-46); MONOCYTES ABSOLUTE AUTO 1.28 K/mm3 (0.16-1.47); MONOCYTES PERCENT AUTO 10 % (4-13); Mean Corpuscular HGB 29.9 pg (26.0-34.0); Mean Corpuscular HGB Conc 30.5 g/dL (31.5-36.5); Mean Platelet Volume 9.4 fL (9.1-12.4); NEUTROPHILS ABSOLUTE AUTO 9.21 K/mm3 (1.96-9.15); NEUTROPHILS PERCENT AUTO 74 % (41-73); NRBC ABSOLUTE 0.02 K/mm3 (0.00-0.02); NRBC Auto 0.2 /100 WBC (0.0-0.2); Platelet Count 409 K/mm3 (150-400); RDW Coefficient Variation 20.2 % (11.7-14.2); RDW Standard Deviation 73.6 fL (35.1-46.3); Red Blood Cell Count 2.41 M/mm3 (4.30-5.90)
[2018-07-12 04:23] LABS: Mean Corpuscular Volume 98 fL (80-100)
[2018-07-12 04:39] LABS: Anion Gap 7 mmol/L (6-16); Blood Urea Nitrogen 23 mg/dL (8-24); Bun/Creatinine Ratio 35.3 (12.0-20.0); CO2, Blood 26 mmol/L (21-32); Calcium, Blood 7.5 mg/dL (8.5-10.1); Chloride, Blood 103 mmol/L (98-108); Creatinine, Blood 0.65 mg/dL (0.60-1.20); Glomerular Filtration Rate >60 (60-); Glucose, Blood 68 mg/dL (70-99); Potassium, Blood 3.6 mmol/L (3.5-5.5); Sodium, Blood 136 mmol/L (136-145)
[2018-07-12 06:36] LABS: Bilirubin, Urine Neg (Neg); Blood, Urine Neg (Neg); Glucose Qualitative, Urine Neg (Neg); Ketones, Urine 1+ (Neg); Leukocyte Esterase, Urine Neg (Neg); Nitrite, Urine Neg (Neg); Protein, Urine 2+ (Neg); Urobilinogen, Urine NORM (Normal)
[2018-07-12 06:51] LABS: Appearance, Urine Clear (Clear); Color, Urine Yellow (P-Yellow)
[2018-07-12 06:53] LABS: Bacteria Not Seen /hpf; Mucus Light (0-Heavy); Red Blood Cells, Urine Not Seen /hpf (0-2); Squamous Epithelial Cells Rare /hpf (Few); White Blood Cells, Urine Not Seen /hpf (0-5)
[2018-07-12 06:54] LABS: Oval Fat Bodies Rare /lpf; Renal Epithelial Few /hpf (0-Rare)
[2018-07-13 04:22] LABS: BASOPHILS ABSOLUTE AUTO 0.03 K/mm3 (0.00-0.23); BASOPHILS PERCENT AUTO 1 % (0-2); EOSINOPHILS ABSOLUTE AUTO 0.01 K/mm3 (0.00-0.68); EOSINOPHILS PERCENT AUTO 0 % (0-6); Hematocrit 32.5 % (37.0-53.0); Hemoglobin 10.4 g/dL (13.5-17.5); IMMATURE GRAN ABSOLUTE AUTO 0.03 K/mm3 (0.00-0.10); IMMATURE GRAN PERCENT AUTO 1 % (0-1); LYMPHOCYTES ABSOLUTE AUTO 1.62 K/mm3 (0.84-5.20); LYMPHOCYTES PERCENT AUTO 27 % (21-46); MONOCYTES ABSOLUTE AUTO 0.65 K/mm3 (0.16-1.47); MONOCYTES PERCENT AUTO 11 % (4-13); Mean Corpuscular HGB 29.4 pg (26.0-34.0); NEUTROPHILS ABSOLUTE AUTO 3.71 K/mm3 (1.96-9.15); NEUTROPHILS PERCENT AUTO 61 % (41-73); NRBC ABSOLUTE 0.02 K/mm3 (0.00-0.02); NRBC Auto 0.3 /100 WBC (0.0-0.2); Platelet Count 376 K/mm3 (150-400); RDW Coefficient Variation 18.6 % (11.7-14.2); RDW Standard Deviation 62.9 fL (35.1-46.3); Red Blood Cell Count 3.54 M/mm3 (4.30-5.90); White Blood Cell Count 6.05 K/mm3 (4.00-11.30)
[2018-07-13 04:23] LABS: Mean Corpuscular Volume 92 fL (80-100)
[2018-07-14 05:22] LABS: BASOPHILS ABSOLUTE AUTO 0.02 K/mm3 (0.00-0.23); BASOPHILS PERCENT AUTO 0 % (0-2); EOSINOPHILS ABSOLUTE AUTO 0.01 K/mm3 (0.00-0.68); EOSINOPHILS PERCENT AUTO 0 % (0-6); Hematocrit 35.5 % (37.0-53.0); Hemoglobin 11.4 g/dL (13.5-17.5); IMMATURE GRAN ABSOLUTE AUTO 0.02 K/mm3 (0.00-0.10); IMMATURE GRAN PERCENT AUTO 0 % (0-1); LYMPHOCYTES ABSOLUTE AUTO 1.08 K/mm3 (0.84-5.20); LYMPHOCYTES PERCENT AUTO 22 % (21-46); MONOCYTES ABSOLUTE AUTO 0.74 K/mm3 (0.16-1.47); MONOCYTES PERCENT AUTO 15 % (4-13); Mean Corpuscular HGB 29.3 pg (26.0-34.0); Mean Corpuscular HGB Conc 32.1 g/dL (31.5-36.5); Mean Corpuscular Volume 91 fL (80-100); Mean Platelet Volume 9.4 fL (9.1-12.4); NEUTROPHILS ABSOLUTE AUTO 2.97 K/mm3 (1.96-9.15); NEUTROPHILS PERCENT AUTO 61 % (41-73); NRBC ABSOLUTE 0.02 K/mm3 (0.00-0.02); NRBC Auto 0.4 /100 WBC (0.0-0.2); Platelet Count 418 K/mm3 (150-400); RDW Standard Deviation 61.1 fL (35.1-46.3); Red Blood Cell Count 3.89 M/mm3 (4.30-5.90); White Blood Cell Count 4.84 K/mm3 (4.00-11.30)
[2018-07-18] MEDS ORDERED: Neurontin300 MG PO (10:44)
[2018-07-18] MEDS ORDERED: PANT40 PO (10:45)
[2018-07-18] MEDS ORDERED: Hydrocodone-Ap1 EA20 PO (10:45)
[2018-07-18] MEDS ORDERED: ALBU2.5V5 NEB (10:45)
[2018-07-18] MEDS ORDERED: DIAZ5 PO (10:48)
[2018-07-18] MEDS ORDERED: NICO21TP TOP (10:48)
[2018-07-18] MEDS ORDERED: SUCR1 PO (10:57)
== END 2018-07-18 12:41 | disposition home health service (06) | DRG 381 ==
LOC: ER 11:43 → MEDS 12:14 → PCU 12:14 → MEDS 13:00 → PCU 07-13 09:59 → MEDS 07-13 11:51 → ENPENDDIS 07-18 10:00 → MEDS 07-18 12:41
PROVIDERS: Emergency Medicine; Family Medicine; Internal Medicine; Student in an Organized Health Care Education/Training Program
PROC: 0DD28ZX Extraction of Middle Esophagus, Via Natural or Artificial Opening Endoscopic, Diagnostic (ICD-10-PCS; principal; 2018-07-12 12:00)
DX: K22.11 Ulcer of esophagus with bleeding (principal); E87.1 Hypo-osmolality and hyponatremia; D62 Acute posthemorrhagic anemia; E87.2 Acidosis; K92.0 Hematemesis; F17.210 Nicotine dependence, cigarettes, uncomplicated; I73.9 Peripheral vascular disease, unspecified; J44.9 Chronic obstructive pulmonary disease, unspecified; I10 Essential (primary) hypertension; K21.9 Gastro-esophageal reflux disease without esophagitis; E86.0 Dehydration; R26.9 Unspecified abnormalities of gait and mobility; Z91.81 History of falling; G62.9 Polyneuropathy, unspecified; D72.829 Elevated white blood cell count, unspecified; K31.89 Other diseases of stomach and duodenum
CPT/HCPCS: 36415; 36430; 36600; 71046; 80048; 80053; 81001; 82803; 83605; 83690; 84484; 85014; 85018; 85025; 86850; 86900; 86901; 86923; 87040; 87071; 87075; 87077; 87106; 87147; 87205; 88305; 88312; 88342; 93005; 93010; 94640; 94760; 96374; 97110; 97116; 97162; 97530; 99285-25; C1751; C9113; G0480; G8978; G8979; J2405; J2543; J7030; J7120; P9016

== ENCOUNTER 2018-11-04 11:57 | Observation (INO) | payer OTHER ==
[~2018-11-04] VITALS: Ht 180.3 cm; Wt 50.5 kg
[~2018-11-04 11:57] MED LIST changes: +Hydrocodone-Ap1 EA20 PO; +IBUP400 PO; +NICO21TP TOP; +Neurontin300 MG PO; +PANT20 PO; +SUCR1 PO
[2018-11-04 13:15] LABS: BASOPHILS ABSOLUTE AUTO 0.02 K/mm3 (0.00-0.23); BASOPHILS PERCENT AUTO 0 % (0-2); EOSINOPHILS ABSOLUTE AUTO 0.01 K/mm3 (0.00-0.68); EOSINOPHILS PERCENT AUTO 0 % (0-6); IMMATURE GRAN ABSOLUTE AUTO 0.06 K/mm3 (0.00-0.10); IMMATURE GRAN PERCENT AUTO 1 % (0-1); LYMPHOCYTES PERCENT AUTO 18 % (21-46); MONOCYTES ABSOLUTE AUTO 1.07 K/mm3 (0.16-1.47); MONOCYTES PERCENT AUTO 18 % (4-13); Mean Corpuscular HGB Conc 28.6 g/dL (31.5-36.5); Mean Platelet Volume 9.3 fL (9.1-12.4); NEUTROPHILS ABSOLUTE AUTO 3.86 K/mm3 (1.96-9.15); NEUTROPHILS PERCENT AUTO 63 % (41-73); NRBC ABSOLUTE 0.02 K/mm3 (0.00-0.02); NRBC Auto 0.3 /100 WBC (0.0-0.2); Platelet Count 535 K/mm3 (150-400); RDW Coefficient Variation 22.4 % (11.7-14.2); RDW Standard Deviation 73.6 fL (35.1-46.3); Red Blood Cell Count 1.92 M/mm3 (4.30-5.90); White Blood Cell Count 6.12 K/mm3 (4.00-11.30)
[2018-11-04 13:17] LABS: Mean Corpuscular Volume 91 fL (80-100)
[2018-11-04 13:18] LABS: Hematocrit 17.5 % (37.0-53.0)
[2018-11-04 13:33] LABS: Alanine Aminotransfer (ALT/SGP 23 U/L (12-78); Albumin, Blood 3.1 g/dL (3.4-5.0); Albumin/Globulin Ratio 0.8 (0.8-1.8); Alk Phos 73 U/L (50-136); Anion Gap 6 mmol/L (6-16); Aspartate Aminotrans (AST/SGOT 14 U/L (12-37); Bilirubin, Total 0.3 mg/dL (0.1-1.0); Blood Urea Nitrogen 14 mg/dL (8-24); CO2, Blood 28 mmol/L (21-32); Calcium, Blood 8.1 mg/dL (8.5-10.1); Chloride, Blood 102 mmol/L (98-108); Creatinine, Blood 0.61 mg/dL (0.60-1.20); Globulin, Blood 3.7 g/dL (2.2-4.0); Glomerular Filtration Rate >60 (60-); Glucose, Blood 99 mg/dL (70-99); Potassium, Blood 4.3 mmol/L (3.5-5.5); Sodium, Blood 136 mmol/L (136-145); Total Protein, Blood 6.8 g/dL (6.4-8.2)
[2018-11-04 14:38] LABS: International Normalized Ratio 1.04; Prothrombin Time Results 10.7 Sec (9.7-11.5)
[2018-11-04] MEDS ORDERED: OXYC1TAB11 (14:47)
[2018-11-04] MEDS ORDERED: CLOP75 PO (15:55)
[2018-11-04] MEDS ORDERED: ASPI81CH PO (15:55)
[2018-11-04] MEDS ORDERED: OXYC10TA19 (16:18)
[2018-11-04] MEDS ORDERED: PROM25 PO (16:22)
[2018-11-04] MEDS ORDERED: PRAZ2 PO (16:24)
[2018-11-04] MEDS ORDERED: CYCL10 PO (16:29)
[2018-11-04] MEDS ORDERED: ATOR20 PO (17:23)
[2018-11-04] MEDS ORDERED: CHOL10002 (17:24)
[2018-11-04] MEDS ORDERED: DULO30 PO (17:24)
[2018-11-04] MEDS ORDERED: METO25ER PO (17:25)
[2018-11-04] MEDS ORDERED: TEMA15 PO (17:58)
[2018-11-04] MEDS ORDERED: COMBIVENT RESPIM4 GM INH (18:01)
[2018-11-04] MEDS ORDERED: ALBU90OI INH (18:02)
[2018-11-04] MEDS ORDERED: Hair, Skin & N1 EACH PO (18:04)
[2018-11-05 05:07] LABS: BASOPHILS ABSOLUTE AUTO 0.03 K/mm3 (0.00-0.23); BASOPHILS PERCENT AUTO 1 % (0-2); EOSINOPHILS ABSOLUTE AUTO 0.01 K/mm3 (0.00-0.68); EOSINOPHILS PERCENT AUTO 0 % (0-6); Hematocrit 25.3 % (37.0-53.0); Hemoglobin 7.6 g/dL (13.5-17.5); IMMATURE GRAN ABSOLUTE AUTO 0.06 K/mm3 (0.00-0.10); IMMATURE GRAN PERCENT AUTO 1 % (0-1); LYMPHOCYTES ABSOLUTE AUTO 1.11 K/mm3 (0.84-5.20); LYMPHOCYTES PERCENT AUTO 18 % (21-46); MONOCYTES ABSOLUTE AUTO 1.01 K/mm3 (0.16-1.47); MONOCYTES PERCENT AUTO 16 % (4-13); Mean Corpuscular HGB 25.2 pg (26.0-34.0); Mean Platelet Volume 9.3 fL (9.1-12.4); NEUTROPHILS ABSOLUTE AUTO 4.06 K/mm3 (1.96-9.15); NEUTROPHILS PERCENT AUTO 65 % (41-73); NRBC ABSOLUTE 0.04 K/mm3 (0.00-0.02); NRBC Auto 0.6 /100 WBC (0.0-0.2); Platelet Count 513 K/mm3 (150-400); RDW Coefficient Variation 23.2 % (11.7-14.2); RDW Standard Deviation 71.5 fL (35.1-46.3); Red Blood Cell Count 3.01 M/mm3 (4.30-5.90); White Blood Cell Count 6.28 K/mm3 (4.00-11.30)
[2018-11-05 05:25] LABS: Mean Corpuscular Volume 84 fL (80-100)
--- NOTE | 2018-11-05 06:05 | NUR ---
SHIFT SUMMARY: PT RECIEVED ONE BLOOD TRANSFUSION THIS SHIFT. COMPLETED @ 2100. PT VS REMAIN STABLE T/O THE TRANSFUSION, LS REMAIN CLEAR. NO SOB, ITCHING, HIVES, OR DISCOMFORT OF ANY SORT. PT DOES HAVE CHRONIC BACK PAIN, OF WHICH HE RECIEVES 10 MG PO OXYCODONE Q4H. PT IS A&O, INDEPENDENT IN ROOM, PLEASANT AND COOPERATIVE. HGB AND HCT UP WITH AM LABS. HGB OF 7.6, HCT 25.3. NO BM'S SINCE ARRIVAL TO FLOOR. NO ABDOMINAL DISTENTION UPON ASSESSMENT. BS NORMOACTIVE x 4. DR TELLEZ GAVE VERBAL OKAY TO ALLOW CLEAR LIQUIDS FOR A SNACK @ 2200, AND DURING BREAKFAST OF 11/05, THEN HE WILL BE NPO FOR IMPENDING ENDOSCOPY. PT AWARE OF THESE PLANS. NO OTHER ACUTE CHANGES TO REPORT. WILL CONT TO MONITOR AND PROVIDE CARE UNTIL PRESUMED BY ONCOMING RN.
--- NOTE | 2018-11-05 08:20 | NUR ---
History, Chart, Medications and Allergies reviewed before start of procedure. Lungs clear T/O to Auscultation. Patient confirms NPO status and agrees with scheduled surgery. Pre-Op teaching done. Pt verbalizes understanding.
--- NOTE | 2018-11-05 09:29 | NUR ---
11/05/18 0929 Emil Verde History, Chart, Medications and Allergies reviewed before start of procedure.MONITOR INTACT WITH CONTINUOUS PULSE OXIMETRY AND INTERMITTENT BP.3-LEAD EKG REVIEWED WITH PHYSICIAN PRIOR TO START OF PROCEDURE.Patient confirms NPO status and agrees with scheduled surgery.PATIENT DETERMINED TO BE ASA APPROPRIATE FOR PROPOFOL SEDATION PRIOR TO START OF PROCEDURE BY DR. TELLEZ.
[2018-11-06 05:20] LABS: BASOPHILS ABSOLUTE AUTO 0.03 K/mm3 (0.00-0.23); BASOPHILS PERCENT AUTO 0 % (0-2); EOSINOPHILS ABSOLUTE AUTO 0.01 K/mm3 (0.00-0.68); EOSINOPHILS PERCENT AUTO 0 % (0-6); Hematocrit 24.4 % (37.0-53.0); Hemoglobin 7.3 g/dL (13.5-17.5); IMMATURE GRAN ABSOLUTE AUTO 0.05 K/mm3 (0.00-0.10); IMMATURE GRAN PERCENT AUTO 1 % (0-1); LYMPHOCYTES ABSOLUTE AUTO 1.09 K/mm3 (0.84-5.20); LYMPHOCYTES PERCENT AUTO 14 % (21-46); MONOCYTES ABSOLUTE AUTO 1.42 K/mm3 (0.16-1.47); MONOCYTES PERCENT AUTO 18 % (4-13); Mean Corpuscular HGB 25.2 pg (26.0-34.0); Mean Corpuscular HGB Conc 29.9 g/dL (31.5-36.5); Mean Corpuscular Volume 84 fL (80-100); Mean Platelet Volume 9.2 fL (9.1-12.4); NEUTROPHILS ABSOLUTE AUTO 5.29 K/mm3 (1.96-9.15); NEUTROPHILS PERCENT AUTO 67 % (41-73); NRBC ABSOLUTE 0.02 K/mm3 (0.00-0.02); NRBC Auto 0.3 /100 WBC (0.0-0.2); Platelet Count 515 K/mm3 (150-400); RDW Coefficient Variation 22.7 % (11.7-14.2); RDW Standard Deviation 70.1 fL (35.1-46.3); White Blood Cell Count 7.89 K/mm3 (4.00-11.30)
--- NOTE | 2018-11-06 05:56 | NUR ---
SHIFT SUMMARY PATIENT SLEPT OFF AND ON THROUGH THE NIGHT. REPORTED THAT HE RECENTLY LOST HIS 2 WEEKS AGO AND HAS BEEN HAVING TROUBLE SLEEPING SINCE. MELATONIN GIVEN WITH SOME EFFECT NOTED. PATIENT ALSO RECENTLY HAD REVASCULARIZATION SURGERY IN BILATERAL LOWER EXTREMITIES WITH PAIN THAT WAKES HIM DURING THE NIGHT. REQUIRING PAIN MEDICATIONS AROUND THE CLOCK AT THIS TIME. WILL CONTINUE TO MONITOR AND TREAT UNTIL SHIFT HANDOFF.
[2018-11-06 05:57] LABS: Percent Saturation 3.8 % (20.0-50.0)
[2018-11-06] MEDS ORDERED: GAVILAX17 GM PO (12:58)
[2018-11-06] MEDS ORDERED: Ferrous Sulfat325 M2 PO (12:59)
--- NOTE | 2018-11-06 13:55 | NUR ---
IV IRON GIVEN. PATIENT DISCHARGED HOME VIA TAXI. INDEPENDENT. ABLE TO MAKE HIS NEEDS KNOWN, DISCHARGED WITH NO ACUTE ISSUES.
--- NOTE | 2018-11-06 16:17 | NUR ---
met with patient he wants to discharge. He would like us to update dr issa on his needs and plan. He trusts him and wants him to manage his care.
== END 2018-11-06 13:00 | disposition home or self-care (01) ==
LOC: ER 11:57 → ERHOLD 11:58 → MEDS 11:58
PROVIDERS: Emergency Medicine; Internal Medicine Gastroenterology; ADMIT Hospitalist
PROC: 0DB38ZZ Excision of Lower Esophagus, Via Natural or Artificial Opening Endoscopic (ICD-10-PCS; principal; 2018-11-05 16:00)
PROC: 0D728ZZ Dilation of Middle Esophagus, Via Natural or Artificial Opening Endoscopic (ICD-10-PCS; principal; 2018-11-05 16:00)
DX: K21.0 Gastro-esophageal reflux disease with esophagitis (principal); K22.2 Esophageal obstruction; K44.9 Diaphragmatic hernia without obstruction or gangrene; D50.9 Iron deficiency anemia, unspecified; I10 Essential (primary) hypertension; J44.9 Chronic obstructive pulmonary disease, unspecified; I48.91 Unspecified atrial fibrillation; F17.210 Nicotine dependence, cigarettes, uncomplicated; K92.2 Gastrointestinal hemorrhage, unspecified; G89.29 Other chronic pain; I73.9 Peripheral vascular disease, unspecified; Z79.899 Other long term (current) drug therapy
CPT/HCPCS: 36415; 36430; 80053; 82728; 83540; 83550; 83690; 85025; 85610; 86850; 86900; 86901; 86923; 88305; 94640; 94760; 96374; 96375; 96376; 99285-25; C1726; C9113; G0378; J2916; J7030; J7120; P9016

== ENCOUNTER 2018-11-28 14:17 | Observation (INO) | payer OTHER ==
[~2018-11-28] VITALS: Ht 180.3 cm; Wt 49.7 kg
[~2018-11-28 14:17] MED LIST changes: +ALBU90OI INH; +ASPI81CH PO; +ATOR20 PO; +CHOL10002; +DULO30 PO; +Ferrous Sulfat325 M2 PO; +GAVILAX17 GM PO; +Hair, Skin & N1 EACH PO; +OXYC10TA19; +OXYC1TAB11; +TEMA15 PO
[2018-11-28 15:03] LABS: BASOPHILS ABSOLUTE AUTO 0.04 K/mm3 (0.00-0.23); BASOPHILS PERCENT AUTO 1 % (0-2); EOSINOPHILS ABSOLUTE AUTO 0.03 K/mm3 (0.00-0.68); EOSINOPHILS PERCENT AUTO 1 % (0-6); Hematocrit 30.3 % (37.0-53.0); Hemoglobin 8.9 g/dL (13.5-17.5); IMMATURE GRAN ABSOLUTE AUTO 0.06 K/mm3 (0.00-0.10); IMMATURE GRAN PERCENT AUTO 1 % (0-1); LYMPHOCYTES ABSOLUTE AUTO 1.75 K/mm3 (0.84-5.20); LYMPHOCYTES PERCENT AUTO 30 % (21-46); MONOCYTES ABSOLUTE AUTO 1.05 K/mm3 (0.16-1.47); MONOCYTES PERCENT AUTO 18 % (4-13); Mean Corpuscular HGB 27.7 pg (26.0-34.0); Mean Corpuscular HGB Conc 29.4 g/dL (31.5-36.5); Mean Corpuscular Volume 94 fL (80-100); NEUTROPHILS ABSOLUTE AUTO 2.84 K/mm3 (1.96-9.15); NEUTROPHILS PERCENT AUTO 49 % (41-73); Platelet Count 527 K/mm3 (150-400); RDW Coefficient Variation 25.1 % (11.7-14.2); RDW Standard Deviation 85.8 fL (35.1-46.3); Red Blood Cell Count 3.21 M/mm3 (4.30-5.90); White Blood Cell Count 5.77 K/mm3 (4.00-11.30)
[2018-11-28 15:30] LABS: Anion Gap 5 mmol/L (6-16); Blood Urea Nitrogen 16 mg/dL (8-24); Bun/Creatinine Ratio 24.6 (12.0-20.0); CO2, Blood 26 mmol/L (21-32); Calcium, Blood 7.9 mg/dL (8.5-10.1); Chloride, Blood 105 mmol/L (98-108); Creatinine, Blood 0.65 mg/dL (0.60-1.20); Glomerular Filtration Rate >60 (60-); Glucose, Blood 95 mg/dL (70-99); Potassium, Blood 4.3 mmol/L (3.5-5.5); Sodium, Blood 136 mmol/L (136-145)
--- NOTE | 2018-11-28 17:30 | NUR ---
REPORT RECIEVED FROM MEGAN ANDERSON RN. PT ARRIVED TO PCU 4 VIA GURNEY. PT WAS ABLE TO TRASNFER SELF TO BED. PT ALERT AND OX3. PT REPORTS HE IS HAVING 8/10 BACK PAIN AT THIS TIME AND IS REQUESTING PAIN MEDICAITON. BLOOD INFUSING FROM ER. VSS. PT ORIENTED TO ROOM AND CALL LIGHT, CALL LIGHT IN REACH. WILL CONTINUE TO MONITOR.
--- NOTE | 2018-11-28 18:38 | NUR ---
Call to Dr. Staley regarding the pt's c/o pain and reported allergy to Tramadol. Pt states that he takes oxycodone 10 mg for pain. One time order received.
--- NOTE | 2018-11-28 19:15 | NUR ---
DEYANIRA WAYNE CALLED MD FOR PAIN MEDS, ONE TIME DOSE OF OXYCODONE GIVEN TO PATIENT. DR. MONTES DE OCA AT BEDSIDE TO ASSESS PATIENT. REPORT GIVEN TO MARION WAYNE. DEYANIRA WAYNE COMPLETED ADMIT MEDICATIONS AND HEALTH HISTORY. NO ACUTE CHANGES, REPORT GIVEN TO DOLLY WAYNE.
[2018-11-28 21:43] LABS: BASOPHILS ABSOLUTE AUTO 0.05 K/mm3 (0.00-0.23); BASOPHILS PERCENT AUTO 1 % (0-2); EOSINOPHILS ABSOLUTE AUTO 0.03 K/mm3 (0.00-0.68); EOSINOPHILS PERCENT AUTO 0 % (0-6); Hemoglobin 8.8 g/dL (13.5-17.5); IMMATURE GRAN ABSOLUTE AUTO 0.08 K/mm3 (0.00-0.10); IMMATURE GRAN PERCENT AUTO 1 % (0-1); LYMPHOCYTES ABSOLUTE AUTO 2.02 K/mm3 (0.84-5.20); LYMPHOCYTES PERCENT AUTO 26 % (21-46); MONOCYTES ABSOLUTE AUTO 0.98 K/mm3 (0.16-1.47); MONOCYTES PERCENT AUTO 13 % (4-13); Mean Corpuscular HGB 28.2 pg (26.0-34.0); Mean Corpuscular HGB Conc 30.3 g/dL (31.5-36.5); Mean Corpuscular Volume 93 fL (80-100); Mean Platelet Volume 9.5 fL (9.1-12.4); NEUTROPHILS ABSOLUTE AUTO 4.69 K/mm3 (1.96-9.15); NEUTROPHILS PERCENT AUTO 60 % (41-73); Platelet Count 402 K/mm3 (150-400); RDW Coefficient Variation 23.3 % (11.7-14.2); RDW Standard Deviation 79.3 fL (35.1-46.3); Red Blood Cell Count 3.12 M/mm3 (4.30-5.90); White Blood Cell Count 7.85 K/mm3 (4.00-11.30)
[2018-11-29 04:22] LABS: BASOPHILS ABSOLUTE AUTO 0.05 K/mm3 (0.00-0.23); BASOPHILS PERCENT AUTO 1 % (0-2); EOSINOPHILS ABSOLUTE AUTO 0.03 K/mm3 (0.00-0.68); EOSINOPHILS PERCENT AUTO 1 % (0-6); Hematocrit 33.4 % (37.0-53.0); Hemoglobin 10.2 g/dL (13.5-17.5); IMMATURE GRAN ABSOLUTE AUTO 0.07 K/mm3 (0.00-0.10); IMMATURE GRAN PERCENT AUTO 1 % (0-1); LYMPHOCYTES ABSOLUTE AUTO 1.36 K/mm3 (0.84-5.20); LYMPHOCYTES PERCENT AUTO 22 % (21-46); MONOCYTES ABSOLUTE AUTO 1.12 K/mm3 (0.16-1.47); MONOCYTES PERCENT AUTO 18 % (4-13); Mean Corpuscular HGB Conc 30.5 g/dL (31.5-36.5); Mean Corpuscular Volume 92 fL (80-100); Mean Platelet Volume 9.6 fL (9.1-12.4); NEUTROPHILS ABSOLUTE AUTO 3.66 K/mm3 (1.96-9.15); NEUTROPHILS PERCENT AUTO 58 % (41-73); NRBC ABSOLUTE 0.02 K/mm3 (0.00-0.02); NRBC Auto 0.3 /100 WBC (0.0-0.2); Platelet Count 383 K/mm3 (150-400); RDW Coefficient Variation 22.1 % (11.7-14.2); RDW Standard Deviation 73.2 fL (35.1-46.3); Red Blood Cell Count 3.64 M/mm3 (4.30-5.90); White Blood Cell Count 6.29 K/mm3 (4.00-11.30)
--- NOTE | 2018-11-29 07:44 | NUR ---
SHIFT SUMMARY PATIENT PLEASENT AND COOPERATIVE THORUGHOUT THE NIGHT. PATIENT FINISHED RECIVING THE UNIT OF BLOOD STARTED IN THE ER AND RECIEVED AN ADDITIONAL UNIT OF BLOOD FOR A TOLTAL OF 2 UNITS OF PRBC. PROTONIX GTT RUNNING PER ORDERS. VITAL SIGNS CHARTED. PATIENT APPEARED TO NAP ON AND OFF THROUGHOUT THE NIGHT. REPORT GIVEN TO ONCOMING RN.
--- NOTE | 2018-11-29 07:51 | NUR ---
ASSUMED CARE AND COMFORT OF THIS PATIENT AT 0700 TODAY FROM MARION WAYNE. PT AWAKE AND SITTING UP IN BED. ASKS FOR PAIN MEDICATION. PER REPORT FROM MARION WAYNE. ASKS THAT PATIENT NOT RECEIVE ANY ADDITIONAL PAIN MEDICATIONS DURING EVENING AND WILL RE EVALUATE TODAY. PT INFORMED THAT WILL SPEAK WITH MD ABOUT HIS PAIN MANAGEMENT TODAY. PT VERBALIZED UNDERSTANDING.
[2018-11-29] MEDS ORDERED: PRAZ2 PO (14:00)
[2018-11-29] MEDS ORDERED: GABA600 PO (14:02)
[2018-11-29] MEDS ORDERED: [UNRECOGNIZED DRUG - OTHER] (14:04)
[2018-11-29] MEDS ORDERED: MIRT30 PO (14:04)
[2018-11-29] MEDS ORDERED: METO25ER PO (14:06)
[2018-11-29] MEDS ORDERED: PROM25 PO (14:06)
--- NOTE | 2018-11-29 14:46 | NUR ---
PT VERY AGITATED WANTS TO GO SMOKE CIGARETTES. ATTEMPT TO EDUCATE PATEINT ARE UNSUCCESSFUL. SHE IS CURRENTLY LAYING WITH HOB AT 15 DEGREES. FEMORAL SITE IS DRY WITH NO NEW BLEEDING NOTED. POTTS CATHETER CONTINUES TO DRAIN CLEAR YELLOW URINE. PT YELLING AT NITO [employer]. THIS RN IN ROOM TO TRY AND CALM PATIENT DOWN. PT SAYS SHE WANTS TO GO HOME AND THAT SHE IS WILLING TO TAKE THE RISK OF "BLEEDING OUT" AND TO CALL . PT IS EDUCATED THAT SHE IS NOT A PRISONER IN THE HOSPITAL AND THAT SHE CAN CHECK OUT AMA IF SHE CHOOSES BUT THAT IT THE RISKS ARE VERY DANGEROUS THAT SHE COULD HAVE A FEMORAL BLEED. PT YELLS TO GET OUT OF HER ROOM, THIS RN STEPS OUT OF ROOM AND WILL MONITOR FROM A DISTANCE.
[2018-11-30 05:21] LABS: BASOPHILS ABSOLUTE AUTO 0.04 K/mm3 (0.00-0.23); BASOPHILS PERCENT AUTO 1 % (0-2); EOSINOPHILS ABSOLUTE AUTO 0.02 K/mm3 (0.00-0.68); EOSINOPHILS PERCENT AUTO 0 % (0-6); Hematocrit 38.3 % (37.0-53.0); Hemoglobin 11.8 g/dL (13.5-17.5); IMMATURE GRAN ABSOLUTE AUTO 0.05 K/mm3 (0.00-0.10); IMMATURE GRAN PERCENT AUTO 1 % (0-1); LYMPHOCYTES ABSOLUTE AUTO 1.24 K/mm3 (0.84-5.20); LYMPHOCYTES PERCENT AUTO 17 % (21-46); MONOCYTES ABSOLUTE AUTO 0.95 K/mm3 (0.16-1.47); MONOCYTES PERCENT AUTO 13 % (4-13); Mean Corpuscular HGB 28.3 pg (26.0-34.0); Mean Corpuscular HGB Conc 30.8 g/dL (31.5-36.5); Mean Corpuscular Volume 92 fL (80-100); Mean Platelet Volume 9.3 fL (9.1-12.4); NEUTROPHILS ABSOLUTE AUTO 4.86 K/mm3 (1.96-9.15); NEUTROPHILS PERCENT AUTO 68 % (41-73); Platelet Count 369 K/mm3 (150-400); RDW Coefficient Variation 22.3 % (11.7-14.2); RDW Standard Deviation 75.7 fL (35.1-46.3); Red Blood Cell Count 4.17 M/mm3 (4.30-5.90); White Blood Cell Count 7.16 K/mm3 (4.00-11.30)
--- NOTE | 2018-11-30 07:44 | NUR ---
SUMMARY NO EVIDENCE OF ACTIVE GI BLEED TONIGHT. PT SLEPT BETWEEN PAIN MEDS FOR CHRONIC BACK PAIN. VOIDING. REFUSING GI CX, PAS AND TELE.
== END 2018-11-30 12:00 | disposition home or self-care (01) ==
LOC: ER 14:17 → PCU 14:18 → SURS 11-29 18:01
PROVIDERS: Emergency Medicine; ADMIT Hospitalist
DX: K92.1 Melena (principal); D64.9 Anemia, unspecified; I73.9 Peripheral vascular disease, unspecified; J44.9 Chronic obstructive pulmonary disease, unspecified; M54.9 Dorsalgia, unspecified; G89.29 Other chronic pain; I10 Essential (primary) hypertension; K21.9 Gastro-esophageal reflux disease without esophagitis; I48.91 Unspecified atrial fibrillation; F10.10 Alcohol abuse, uncomplicated; Z87.891 Personal history of nicotine dependence; Z91.19 Patient's noncompliance with other medical treatment and regimen; Z95.828 Presence of other vascular implants and grafts; Z79.82 Long term (current) use of aspirin; Z79.02 Long term (current) use of antithrombotics/antiplatelets; Z79.899 Other long term (current) drug therapy; Z88.5 Allergy status to narcotic agent
CPT/HCPCS: 36415; 36430; 80048; 82272; 85025; 86850; 86900; 86901; 86923; 93005; 93010; 94640; 94760; 96365; 96367; 96376; 99285-25; C9113; G0378; J2916; J7030; P9016

== ENCOUNTER 2019-06-03 15:17 | Inpatient (IN) | payer SELFPAY ==
[~2019-06-03] VITALS: Ht 180.3 cm; Wt 51.7 kg
[~2019-06-03 15:17] MED LIST changes: +[UNRECOGNIZED DRUG - OTHER]
[2019-06-03 15:51] LABS: BASOPHILS ABSOLUTE AUTO 0.02 K/mm3 (0.00-0.23); BASOPHILS PERCENT AUTO 0 % (0-2); EOSINOPHILS PERCENT AUTO 0 % (0-6); Hematocrit 29.8 % (37.0-53.0); Hemoglobin 9.4 g/dL (13.5-17.5); IMMATURE GRAN ABSOLUTE AUTO 0.04 K/mm3 (0.00-0.10); IMMATURE GRAN PERCENT AUTO 1 % (0-1); LYMPHOCYTES ABSOLUTE AUTO 1.01 K/mm3 (0.84-5.20); LYMPHOCYTES PERCENT AUTO 16 % (21-46); MONOCYTES ABSOLUTE AUTO 0.87 K/mm3 (0.16-1.47); MONOCYTES PERCENT AUTO 13 % (4-13); Mean Corpuscular HGB 35.9 pg (26.0-34.0); Mean Corpuscular HGB Conc 31.5 g/dL (31.5-36.5); Mean Corpuscular Volume 114 fL (80-100); Mean Platelet Volume 9.6 fL (9.1-12.4); NEUTROPHILS ABSOLUTE AUTO 4.59 K/mm3 (1.96-9.15); NEUTROPHILS PERCENT AUTO 70 % (41-73); NRBC ABSOLUTE 0.04 K/mm3 (0.00-0.02); NRBC Auto 0.6 /100 WBC (0.0-0.2); Platelet Count 380 K/mm3 (150-400); RDW Coefficient Variation 18.4 % (11.7-14.2); RDW Standard Deviation 75.8 fL (35.1-46.3); Red Blood Cell Count 2.62 M/mm3 (4.30-5.90); White Blood Cell Count 6.53 K/mm3 (4.00-11.30)
[2019-06-03 16:14] LABS: Alanine Aminotransfer (ALT/SGP 28 U/L (12-78); Albumin/Globulin Ratio 0.8 (0.8-1.8); Alk Phos 115 U/L (50-136); Anion Gap 4 mmol/L (6-16); Aspartate Aminotrans (AST/SGOT 16 U/L (12-37); Bilirubin, Total 0.3 mg/dL (0.1-1.0); Blood Urea Nitrogen 15 mg/dL (8-24); Bun/Creatinine Ratio 24.8 (12.0-20.0); CO2, Blood 32 mmol/L (21-32); Calcium, Blood 8.3 mg/dL (8.5-10.1); Chloride, Blood 102 mmol/L (98-108); Creatinine, Blood 0.61 mg/dL (0.60-1.20); Glomerular Filtration Rate >60 (60-); Glucose, Blood 109 mg/dL (70-99); Potassium, Blood 4.5 mmol/L (3.5-5.5); Sodium, Blood 138 mmol/L (136-145); Troponin I <0.015 ng/mL (0.000-0.040)
[2019-06-03 17:50] LABS: D-Dimer, Quantitative 0.48 mg/L FEU (0.00-0.52); International Normalized Ratio 0.97; Prothrombin Time Results 10.3 Sec (9.7-11.5)
[2019-06-03 18:32] LABS: Source, Urine Catheter
[2019-06-03 18:36] LABS: Bilirubin, Urine Neg (Neg); Blood, Urine Neg (Neg); Glucose Qualitative, Urine Neg (Neg); Ketones, Urine 1+ (Neg); Leukocyte Esterase, Urine 1+ (Neg); Nitrite, Urine Neg (Neg); Protein, Urine Neg (Neg); Urobilinogen, Urine 1+ (Normal); pH, Urine 6.5 (5.0-8.0)
[2019-06-03 18:42] LABS: Color, Urine Yellow (P-Yellow)
[2019-06-03 18:58] LABS: Red Blood Cells, Urine 0-2 /hpf (0-2); White Blood Cells, Urine 0-2 /hpf (0-5)
[2019-06-03 19:00] LABS: Appearance, Urine Clear (Clear); Bacteria Rare /hpf; Squamous Epithelial Cells Rare /hpf (Few)
[2019-06-03] MEDS ORDERED: CLOP75 PO (20:46)
[2019-06-03] MEDS ORDERED: Hydrocodone-Ap1 EA23 PO (20:49)
--- NOTE | 2019-06-03 21:14 | NUR ---
transfer report from Jenny WAYNE in ER on PT who lives alone being admitted after syncopal episode. PT has been in NSR in ER and currently not hypotensive last vital sign check. Await admission
--- NOTE | 2019-06-03 22:34 | NUR ---
call DR BARRERA with PT's home med rec was updated. Tele and stat head CT without contrast for syncopal episode. Pt's home dose of minipress and norco 10mg for pain ordered. rest of home meds not currently ordered.
--- NOTE | 2019-06-04 04:03 | NUR ---
68 year old Male with full code status admitted after synopal episode at home and he was having increased s/sx of copd. PT on tele nrs with pvcs rate in 80's or 90's. He verifies he wants full code status. says he has several new grandchildren he wants to spoil. He is a disabled [place] with PTSD and chronic pain. PT has iliac stents abd bilat and lt femoral artery stent. Bilat le cool pale and have weak pulses. PT is on room air, coughing productive, had antibiotic in ER. Emaciated malnourished. PT 5 ft 11 inches and 46.3 kg. Missing multiple teeth will change diet to mech soft. Smoker for 40 plus years. Cessation encouraged. cat scan of brain completed await report. Recent fall at home, says he fell on tailbone. medicated with 1 norco 10/325 with helpful effect. Fall precautions in place.
[2019-06-04 05:17] LABS: BASOPHILS ABSOLUTE AUTO 0.01 K/mm3 (0.00-0.23); BASOPHILS PERCENT AUTO 0 % (0-2); EOSINOPHILS PERCENT AUTO 0 % (0-6); Hematocrit 28.7 % (37.0-53.0); Hemoglobin 8.7 g/dL (13.5-17.5); IMMATURE GRAN ABSOLUTE AUTO 0.04 K/mm3 (0.00-0.10); IMMATURE GRAN PERCENT AUTO 1 % (0-1); LYMPHOCYTES ABSOLUTE AUTO 0.33 K/mm3 (0.84-5.20); LYMPHOCYTES PERCENT AUTO 6 % (21-46); MONOCYTES ABSOLUTE AUTO 0.16 K/mm3 (0.16-1.47); MONOCYTES PERCENT AUTO 3 % (4-13); Mean Corpuscular HGB 35.2 pg (26.0-34.0); Mean Corpuscular HGB Conc 30.3 g/dL (31.5-36.5); Mean Corpuscular Volume 116 fL (80-100); Mean Platelet Volume 10.4 fL (9.1-12.4); NEUTROPHILS ABSOLUTE AUTO 5.32 K/mm3 (1.96-9.15); NEUTROPHILS PERCENT AUTO 91 % (41-73); NRBC ABSOLUTE 0.03 K/mm3 (0.00-0.02); NRBC Auto 0.5 /100 WBC (0.0-0.2); Platelet Count 355 K/mm3 (150-400); RDW Coefficient Variation 18.4 % (11.7-14.2); RDW Standard Deviation 78.2 fL (35.1-46.3); Red Blood Cell Count 2.47 M/mm3 (4.30-5.90); White Blood Cell Count 5.86 K/mm3 (4.00-11.30)
--- NOTE | 2019-06-04 07:31 | NUR ---
ASSUMED CARE OF PT- BEDSIDE REPORT COMPLETED WITH NIGHT RN. PT HAS NO S&S OF DISTRESS NOTED AND IS ALERT AND ORIENTED, CALLS APPROPRIATELY, STANDS AT THE BEDSIDE TO USE THE URINAL. PT HAS Hx SMOKING, COPD, HAS A PRODUCTIVE COUGH, WAS ADMITTED FOR A SYNCOPAL EVENT. ON TELE NSR AT 71 c OCC PVC'S.
--- NOTE | 2019-06-04 19:30 | NUR ---
SHIFT SUMMARY- PT ALERT AND ORIENTED, 1PA WITH TRANSFERS FOR SAFETY D/T RECENT SYNCOPAL EPISODE. PT USES THE URINAL AT THE BEDSIDE. PT HAS Q6 PAIN MEDICATION PRN WHICH HE CALLS FOR ON TIME. THIS IS A HOME MEDICATION, SPOKE TO DR WEATHERS PT HOME DOSE DIAZAPAM ORDERED. PT HAS Hx PTSD AND IS 60% SERVICE CONNECTED DISABILITY (PER PT) PT HAS ONE OR TWO TEETH IN HIS MOUTH, NO DENTURES, REMAINING TEETH ARE BROWN AND LOOK UNHEALTHY TO THE EYE. PT SPOKE TO STAFF ABOUT THE NEED FOR DENTURES AND LACK OF ASSISTANCE AVAILABLE TO HIM, POSSIBLE SS CONSULT. RECIEVED ORDER FOR SWALLOW EVAL. NOT DONE YET, MEDS WERE GIVEN WITH APPLESAUCE. PT AWARE OF SWALLOWING ISSUE AND TAKES HIS TIME CARFUL THAT HE DOES NOT CHOKE. PLAN IS FOR THE PT TO DC HOME TOMORROW.
--- NOTE | 2019-06-05 03:46 | NUR ---
68 year old Male [place] 40% service connected disability has very poor dentation and malnutrition with at least 40 pound wt loss. Has swallow eval ordered due to difficulty chewing swallowing. Social service referral for assist with dental and vision resources, lives alone may need additional help at home. Has PTSD, pleasant cooperative. recent fall and copd worsening 1/2 ppd smoker x 40 plus years, smoking cessation encouraged. Has severe PVD. Has 2 abd stents one lt femoral artery stent. Has chronic pain getting one norco 10/325 mg tab q 6 hours PRN pain. Ensure supplements provided took 100% slowly. neb tx QID and PRN. on oral antibiotic and oral steroid with helpful effect.
[2019-06-05 05:14] LABS: BASOPHILS ABSOLUTE AUTO 0.03 K/mm3 (0.00-0.23); BASOPHILS PERCENT AUTO 0 % (0-2); EOSINOPHILS PERCENT AUTO 0 % (0-6); Hematocrit 27.2 % (37.0-53.0); Hemoglobin 8.4 g/dL (13.5-17.5); IMMATURE GRAN ABSOLUTE AUTO 0.07 K/mm3 (0.00-0.10); IMMATURE GRAN PERCENT AUTO 1 % (0-1); LYMPHOCYTES PERCENT AUTO 14 % (21-46); MONOCYTES ABSOLUTE AUTO 1.42 K/mm3 (0.16-1.47); MONOCYTES PERCENT AUTO 13 % (4-13); Mean Corpuscular HGB 35.1 pg (26.0-34.0); Mean Corpuscular HGB Conc 30.9 g/dL (31.5-36.5); Mean Corpuscular Volume 114 fL (80-100); Mean Platelet Volume 9.4 fL (9.1-12.4); NEUTROPHILS ABSOLUTE AUTO 7.82 K/mm3 (1.96-9.15); NEUTROPHILS PERCENT AUTO 72 % (41-73); NRBC ABSOLUTE 0.09 K/mm3 (0.00-0.02); NRBC Auto 0.8 /100 WBC (0.0-0.2); Platelet Count 403 K/mm3 (150-400); RDW Coefficient Variation 18.4 % (11.7-14.2); RDW Standard Deviation 76.7 fL (35.1-46.3); Red Blood Cell Count 2.39 M/mm3 (4.30-5.90); White Blood Cell Count 10.84 K/mm3 (4.00-11.30)
--- NOTE | 2019-06-05 07:25 | NUR ---
ASSUMED CARE OF PT- BEDSIDE REPORT COMPLETED WITH NIGHT RN SHERRON, PT HAS BEEN MEDICATED FOR PAIN RECENTLY AND STATES NO FURTHER MEDICATION NEEDED AT THIS TIME. PT APPEARS BRIGHTER TODAY THAN YESTERDAY, HOWEVER STATED DURING REPORT HE DOES NOT FEEL COMFORTABLE GOING HOME TODAY, PT FEELS HE NEEDS ANOTHER DAY IN THE HOSPITAL PRIOR TO DISCHARGE. WILL PASS THIS ON TO THE HOSPITALIST WHEN HE ROUNDS ON THE PT. PT TELE HAD BEEN REMOVED FOR CHEST XRAY RATE NSR @ 74 PER FURNITURE PAINTER SINA.
[2019-06-05] MEDS ORDERED: DOCU100 PO (14:28)
[2019-06-05] MEDS ORDERED: ONDA4ODT MM (14:29)
[2019-06-05] MEDS ORDERED: PRED20 PO (14:29)
[2019-06-05] MEDS ORDERED: LEVOFLOXACIN750 MG PO (14:32)
== END 2019-06-05 16:11 | disposition home or self-care (01) | DRG 189 ==
LOC: ER 15:17 → MEDS 19:55
PROVIDERS: Emergency Medicine; Family Medicine; Physician Assistant; ADMIT Hospitalist
DX: J96.21 Acute and chronic respiratory failure with hypoxia (principal); J44.1 Chronic obstructive pulmonary disease with (acute) exacerbation; N39.0 Urinary tract infection, site not specified; E44.0 Moderate protein-calorie malnutrition; D64.9 Anemia, unspecified; B96.20 Unspecified Escherichia coli [E. coli] as the cause of diseases classified elsewhere; R55 Syncope and collapse; K21.9 Gastro-esophageal reflux disease without esophagitis; I10 Essential (primary) hypertension; I48.91 Unspecified atrial fibrillation; F32.9 Major depressive disorder, single episode, unspecified; F10.10 Alcohol abuse, uncomplicated; G89.29 Other chronic pain; F17.210 Nicotine dependence, cigarettes, uncomplicated; I73.9 Peripheral vascular disease, unspecified
CPT/HCPCS: 36415; 51701; 70450; 71046; 80053; 81001; 83605; 83880; 84484; 85025; 85379; 85610; 85730; 86850; 86900; 86901; 87040; 87077; 87086; 87186; 92610; 93005; 93010; 94640; 94644; 94667; 94760; 94761; 96361-59; 96374-59; 96375-59; 99285-25; A9270-GY; J0456; J1650; J2930; J7030; J7050; J7512

== ENCOUNTER 2019-07-15 13:16 | Inpatient (IN) | payer OTHER ==
[~2019-07-15] VITALS: Ht 177.8 cm; Wt 48.0 kg
[~2019-07-15 13:16] MED LIST changes: +Hydrocodone-Ap1 EA23 PO; +LEVOFLOXACIN750 MG PO; +PRED20 PO
[2019-07-15 13:50] LABS: Calcium, Ionized (POC) 1.03 mmol/L (1.10-1.46); Chloride (POC) 94 mmol/L (98-108); Creatinine (POC) 2.5 mg/dL (0.8-1.3); Glucose (ISTAT POC) 118 mg/dL (70-99); Hemoglobin (POC) 9.9 g/dL (13.5-17.5); Potassium (POC) 3.4 mmol/L (3.5-5.5); Sodium (POC) 132 mmol/L (135-148); Total CO2 (POC) 25 mmol/L (21-32)
[2019-07-15] MEDS ORDERED: ACET325 PO (13:54)
[2019-07-15] MEDS ORDERED: Mucinex600 MG PO (13:55)
[2019-07-15] MEDS ORDERED: FERSU300 PO (13:55)
[2019-07-15] MEDS ORDERED: ALBU90OI INH (13:55)
[2019-07-15] MEDS ORDERED: ASCO500 PO (13:55)
[2019-07-15] MEDS ORDERED: COMBIVENT RESPIM4 GM INH (13:55)
[2019-07-15] MEDS ORDERED: PANT40 PO (13:56)
[2019-07-15] MEDS ORDERED: VITAMIN D31000 UNIT PO (13:56)
[2019-07-15] MEDS ORDERED: Nicoderm Cq1 EAC1 TOP (13:57)
[2019-07-15 14:02] LABS: BASOPHILS ABSOLUTE AUTO 0.07 K/mm3 (0.00-0.23); BASOPHILS PERCENT AUTO 0 % (0-2); EOSINOPHILS PERCENT AUTO 0 % (0-6); Hematocrit 28.2 % (37.0-53.0); Hemoglobin 9.2 g/dL (13.5-17.5); IMMATURE GRAN ABSOLUTE AUTO 0.35 K/mm3 (0.00-0.10); IMMATURE GRAN PERCENT AUTO 1 % (0-1); LYMPHOCYTES ABSOLUTE AUTO 0.51 K/mm3 (0.84-5.20); LYMPHOCYTES PERCENT AUTO 2 % (21-46); MONOCYTES ABSOLUTE AUTO 1.75 K/mm3 (0.16-1.47); MONOCYTES PERCENT AUTO 6 % (4-13); Mean Corpuscular HGB 35.4 pg (26.0-34.0); Mean Corpuscular HGB Conc 32.6 g/dL (31.5-36.5); Mean Corpuscular Volume 109 fL (80-100); Mean Platelet Volume 10.8 fL (9.1-12.4); NEUTROPHILS PERCENT AUTO 92 % (41-73); NRBC ABSOLUTE 0.02 K/mm3 (0.00-0.02); NRBC Auto 0.1 /100 WBC (0.0-0.2); Platelet Count 310 K/mm3 (150-400); RDW Coefficient Variation 18.1 % (11.7-14.2); RDW Standard Deviation 70.4 fL (35.1-46.3); White Blood Cell Count 32.08 K/mm3 (4.00-11.30)
[2019-07-15 14:22] LABS: Albumin, Blood 3.1 g/dL (3.4-5.0); Albumin/Globulin Ratio 0.9 (0.8-1.8); Bilirubin, Total 0.3 mg/dL (0.1-1.0); Bun/Creatinine Ratio 38.6 (12.0-20.0); Calcium, Blood 8.5 mg/dL (8.5-10.1); Creatinine, Blood 2.1 mg/dL (0.60-1.20); Globulin, Blood 3.6 g/dL (2.2-4.0); Potassium, Blood 3.5 mmol/L (3.5-5.5); Total Protein, Blood 6.7 g/dL (6.4-8.2)
[2019-07-15 16:04] LABS: Source, Urine Voided
[2019-07-15 16:06] LABS: Bilirubin, Urine Neg (Neg); Blood, Urine 4+ (Neg); Glucose Qualitative, Urine Neg (Neg); Ketones, Urine 1+ (Neg); Leukocyte Esterase, Urine 1+ (Neg); Nitrite, Urine Neg (Neg); Protein, Urine 2+ (Neg); Specific Gravity, Urine 1.015 (1.003-1.022); Urobilinogen, Urine NORM (Normal); pH, Urine 6.5 (5.0-8.0)
[2019-07-15 16:10] LABS: International Normalized Ratio 1.01; Prothrombin Time Results 10.7 Sec (9.7-11.5)
[2019-07-15 16:12] LABS: Appearance, Urine Clear (Clear); Color, Urine Yellow (P-Yellow)
[2019-07-15 16:16] LABS: Bacteria Mod /hpf; Squamous Epithelial Cells Few /hpf (Few)
[2019-07-15] MEDS ORDERED: CYCL10 PO (16:56)
[2019-07-15] MEDS ORDERED: PRAZ2 PO (16:57)
[2019-07-15] MEDS ORDERED: DIAZ5 PO (16:57)
[2019-07-15] MEDS ORDERED: DULO30 PO (16:57)
[2019-07-15 17:39] LABS: Hematocrit 27.2 % (37.0-53.0); Hemoglobin 8.7 g/dL (13.5-17.5)
[2019-07-15 21:40] LABS: Hematocrit 28.6 % (37.0-53.0); Hemoglobin 9.2 g/dL (13.5-17.5)
--- NOTE | 2019-07-15 23:05 | NUR ---
Pt arrived to PCU 11 at 2024 via [facility]. pt able to transfer self from gurney to bed. Pt on 3L NC at time of arrival, mildly CASTANON, mildly tachypneic, recovers within moments of rest. Pt otherwise breathing easy and unlabored at rest, oxygen saturations at 95-98% on 3L NC. BIPAP in room and set up for PRN use. Pt is alert and oriented, though states "I am sometimes forgetful", pt also with slightly slurred, slow to respond speech. Otherwise VSS. No signs of active bleed at this time, no BM so far this shift in PCU. Pt denies abdomenal pain. See admission assessment for detailed systems assessment. Will continue to monitor and provide care per orders and protocol.
[2019-07-16 01:20] LABS: Hematocrit 25.2 % (37.0-53.0); Hemoglobin 8.1 g/dL (13.5-17.5)
[2019-07-16 03:35] LABS: PCO2 Arterial 39.5 mmHg (35-45); PO2 Arterial 61.9 mmHg (80-100)
--- NOTE | 2019-07-16 05:31 | NUR ---
Shift Summary Pt remains with VSS. Remains alert and oriented. No signs of active bleed; no bloody stool; no changes to abdominal assessment. No changes from overall admission systems assessment. Pt uses call light to make needs known, voids in the urinal at bedside independantly; SBA to BSC PRN. Pt remains plesant, calm, cooperative with care. C/o continued pain in back and L toe from recent fall at home. No events on tele. No changes to oxygen demand. Pt remains breathing easy and unlabored at rest. Pt able to sleep on and off throughout shift. Pt states that his "recently". Pt facial expression fell flat when speaking to this RN about 's passing. SS and Palliative care consulted. Will continue to monitor and provide care until change of shift.
[2019-07-16 06:03] LABS: BASOPHILS ABSOLUTE AUTO 0.04 K/mm3 (0.00-0.23); BASOPHILS PERCENT AUTO 0 % (0-2); EOSINOPHILS PERCENT AUTO 0 % (0-6); Hematocrit 27.6 % (37.0-53.0); Hemoglobin 8.6 g/dL (13.5-17.5); IMMATURE GRAN ABSOLUTE AUTO 0.12 K/mm3 (0.00-0.10); IMMATURE GRAN PERCENT AUTO 1 % (0-1); LYMPHOCYTES ABSOLUTE AUTO 0.28 K/mm3 (0.84-5.20); LYMPHOCYTES PERCENT AUTO 1 % (21-46); MONOCYTES PERCENT AUTO 4 % (4-13); Mean Corpuscular HGB 33.5 pg (26.0-34.0); Mean Corpuscular HGB Conc 31.2 g/dL (31.5-36.5); Mean Corpuscular Volume 107 fL (80-100); Mean Platelet Volume 10.2 fL (9.1-12.4); NEUTROPHILS ABSOLUTE AUTO 18.08 K/mm3 (1.96-9.15); NEUTROPHILS PERCENT AUTO 94 % (41-73); Platelet Count 290 K/mm3 (150-400); RDW Coefficient Variation 18.3 % (11.7-14.2); RDW Standard Deviation 70.3 fL (35.1-46.3); Red Blood Cell Count 2.57 M/mm3 (4.30-5.90); White Blood Cell Count 19.32 K/mm3 (4.00-11.30)
[2019-07-16 06:32] LABS: Alanine Aminotransfer (ALT/SGP 33 U/L (12-78); Albumin, Blood 2.8 g/dL (3.4-5.0); Albumin/Globulin Ratio 0.8 (0.8-1.8); Alk Phos 81 U/L (50-136); Anion Gap 6 mmol/L (6-16); Aspartate Aminotrans (AST/SGOT 61 U/L (12-37); Bilirubin, Total 0.3 mg/dL (0.1-1.0); Blood Urea Nitrogen 48 mg/dL (8-24); Bun/Creatinine Ratio 53.5 (12.0-20.0); CO2, Blood 26 mmol/L (21-32); Calcium, Blood 8.4 mg/dL (8.5-10.1); Chloride, Blood 108 mmol/L (98-108); Globulin, Blood 3.7 g/dL (2.2-4.0); Glomerular Filtration Rate >60 (60-); Glucose, Blood 97 mg/dL (70-99); Potassium, Blood 3.5 mmol/L (3.5-5.5); Sodium, Blood 140 mmol/L (136-145); Total Protein, Blood 6.5 g/dL (6.4-8.2)
[2019-07-16 09:47] LABS: Hematocrit 25.2 % (37.0-53.0); Hemoglobin 7.9 g/dL (13.5-17.5)
--- NOTE | 2019-07-16 11:11 | NUR ---
Upon receiving a spiritual care referral, I visited patient. I found him sitting up in bed and alert. [facility] alliance is easily eastablished and so patient openly shares his history of medical issues, of his spiritual journey and his horrific childhood. Although patient has a belief system that is non conventional he is deeply spiritual but has lost some grasp of allyssa given his current situation. I listen empathically and provide spiritual guidance, companionship and prayer. Patient becomes quite tearful during the prayer and states that it really "got to him," and that he felt very encouraged. Patient showed signs of restored allyssa. I will continue to remain available to patient and family.
--- NOTE | 2019-07-16 12:38 | NUR ---
Pleasant, alert and oriented patient conversant with staff. He has c/o leg pain, which he states is chronic ever since he had stents placed for revascularization of his lower extremities. We are giving him IV Dilaudid for pain; at home he states pain relief is with oral oxycodone. Able to swallow his pills slowly, with applesauce. States that he frequently has trouble swallowing pills if they are too large or if he is very weak. He has been out of bed only to stand at the bedside to use the urinal.
--- NOTE | 2019-07-16 12:49 | NUR ---
Telephone report given to Keily Clemens RN, At this time.
--- NOTE | 2019-07-16 14:24 | NUR ---
Powerglide was placed by Unique Sol RN. At this time the pt is getting an abdominal ultrasound. AFter that, he will be transferred to the medical floor.
--- NOTE | 2019-07-16 14:53 | NUR ---
metal technician notified me that the pt's has urinary retention, greater than 1000 cc. Sanches catheter placed per Dr. King telephone order.
--- NOTE | 2019-07-16 15:25 | NUR ---
PT ARRIVED TO ROOM 333 FROM PCU 11 VIA W/C, ABLE TO STAND AND TRANSFER TO BED WITH ASSISTANCE, UNSTEADY ON HIS FEET. ORIENTED TO ROOM AND CALL SYSTEM. CALL MARTINEZ IN REACH, PT REPORTS SOME LEG PAIN, BUT HE WAS MEDICATED SHORTLY BEFORE BEING TRANSPORTED TO MEDICAL FLOOR. WILL CONTINUE TO MONITOR.
--- NOTE | 2019-07-16 18:19 | NUR ---
PT RESTING QUIETLY, NO REPORTS OF PAIN AT THIS TIME. NO ACUTE CHANGES NOTED SINCE PT ARRIVAL TO FLOOR
[2019-07-17 05:30] LABS: BASOPHILS ABSOLUTE AUTO 0.01 K/mm3 (0.00-0.23); BASOPHILS PERCENT AUTO 0 % (0-2); EOSINOPHILS PERCENT AUTO 0 % (0-6); Hemoglobin 7.4 g/dL (13.5-17.5); IMMATURE GRAN ABSOLUTE AUTO 0.07 K/mm3 (0.00-0.10); IMMATURE GRAN PERCENT AUTO 1 % (0-1); LYMPHOCYTES ABSOLUTE AUTO 0.27 K/mm3 (0.84-5.20); LYMPHOCYTES PERCENT AUTO 3 % (21-46); MONOCYTES ABSOLUTE AUTO 0.79 K/mm3 (0.16-1.47); MONOCYTES PERCENT AUTO 8 % (4-13); Mean Corpuscular HGB 34.1 pg (26.0-34.0); Mean Corpuscular HGB Conc 30.8 g/dL (31.5-36.5); Mean Platelet Volume 9.7 fL (9.1-12.4); NEUTROPHILS ABSOLUTE AUTO 8.61 K/mm3 (1.96-9.15); NEUTROPHILS PERCENT AUTO 88 % (41-73); Platelet Count 247 K/mm3 (150-400); RDW Coefficient Variation 18.4 % (11.7-14.2); RDW Standard Deviation 72.8 fL (35.1-46.3); Red Blood Cell Count 2.17 M/mm3 (4.30-5.90); White Blood Cell Count 9.75 K/mm3 (4.00-11.30)
[2019-07-17 05:39] LABS: Mean Corpuscular Volume 111 fL (80-100)
[2019-07-17 05:53] LABS: Anion Gap 6 mmol/L (6-16); Blood Urea Nitrogen 29 mg/dL (8-24); Bun/Creatinine Ratio 55.8 (12.0-20.0); CO2, Blood 30 mmol/L (21-32); Calcium, Blood 8.7 mg/dL (8.5-10.1); Chloride, Blood 107 mmol/L (98-108); Creatinine, Blood 0.52 mg/dL (0.60-1.20); Glomerular Filtration Rate >60 (60-); Glucose, Blood 109 mg/dL (70-99); Potassium, Blood 4.1 mmol/L (3.5-5.5); Sodium, Blood 143 mmol/L (136-145)
--- NOTE | 2019-07-17 06:41 | NUR ---
a+o, requested dressing for coccyx, complied, call light in reach, no significan medical changes noted, updated diet to [facility] soft per pt request, saline locked, will continue to monitor and treat until share bsr with day staff and pt
[2019-07-17 12:31] LABS: Percent Saturation 3.7 % (20.0-50.0)
--- NOTE | 2019-07-17 18:36 | NUR ---
PT CONTINUES TO NEED PAIN RELIEF ON A REGULAR BASIS, UNSTEADY ON FEET AND HAS A DIFFICULT TIME EATING, HE REQUESTED DIET TEXTURE CHANGE TO MECHANICAL SOFT. DIETARY CONSULT PLACED AND HE WAS SEEN BY DIETITIAN TODAY. NO ACUTE CHANGES NOTED THIS SHIFT, WILL CONTINUE TO MONITOR AND REPORT TO ONCOMING RN
[2019-07-18 05:21] LABS: BASOPHILS ABSOLUTE AUTO 0.01 K/mm3 (0.00-0.23); BASOPHILS PERCENT AUTO 0 % (0-2); EOSINOPHILS PERCENT AUTO 0 % (0-6); Hemoglobin 6.8 g/dL (13.5-17.5); IMMATURE GRAN ABSOLUTE AUTO 0.07 K/mm3 (0.00-0.10); IMMATURE GRAN PERCENT AUTO 1 % (0-1); LYMPHOCYTES ABSOLUTE AUTO 1.22 K/mm3 (0.84-5.20); LYMPHOCYTES PERCENT AUTO 19 % (21-46); MONOCYTES ABSOLUTE AUTO 0.69 K/mm3 (0.16-1.47); MONOCYTES PERCENT AUTO 11 % (4-13); Mean Corpuscular HGB Conc 30.9 g/dL (31.5-36.5); Mean Platelet Volume 10.1 fL (9.1-12.4); NEUTROPHILS ABSOLUTE AUTO 4.49 K/mm3 (1.96-9.15); NEUTROPHILS PERCENT AUTO 69 % (41-73); Platelet Count 279 K/mm3 (150-400); RDW Coefficient Variation 18.5 % (11.7-14.2); RDW Standard Deviation 70.7 fL (35.1-46.3); Red Blood Cell Count 2.06 M/mm3 (4.30-5.90); White Blood Cell Count 6.48 K/mm3 (4.00-11.30)
[2019-07-18 05:24] LABS: Mean Corpuscular Volume 107 fL (80-100)
[2019-07-18 05:42] LABS: Anion Gap 1 mmol/L (6-16); Blood Urea Nitrogen 18 mg/dL (8-24); Bun/Creatinine Ratio 37.7 (12.0-20.0); CO2, Blood 36 mmol/L (21-32); Calcium, Blood 8.2 mg/dL (8.5-10.1); Chloride, Blood 100 mmol/L (98-108); Creatinine, Blood 0.48 mg/dL (0.60-1.20); Glomerular Filtration Rate >60 (60-); Glucose, Blood 90 mg/dL (70-99); Potassium, Blood 3.6 mmol/L (3.5-5.5); Sodium, Blood 137 mmol/L (136-145)
--- NOTE | 2019-07-18 06:25 | NUR ---
SHIFT SUMMARY PT IS A 68 Y/O MALE, ADMITTED FOR COPD EXACERBATION AND POSSIBLE GI BLEED. PT HAS GENERAL WEAKNESS AND MALAISE, AND IS ON BEDREST. HE COMPLAINED OF PAIN IN HIS LEGS THROUGH THE NIGHT, AND WAS MEDICATED EVERY 2 HOURS WITH IV DILAUDID, WHICH DID NOT CONTROL HIS PAIN WELL. NO REPORTS OF NAUSEA OR SOB. PT'S BP DID RUN LOW AT 99/71. ALL OTHER VITALS STABLE. ON AM LABS, PT'S HG WAS FOUND TO BE 6.7 AND HCT WAS 22.0. THE HOSPITALIST DR POPE WAS CONSULTED, AND 1 UNIT PRBC TRANSFUSION WAS ORDERED. NO OTHER ACUTE CHANGES IN PT CONDITION NOTED. WILL CONTINUE TO MONITOR AND TREAT PER EMAR UNTIL HAND OFF TO DAY SHIFT RN.
[2019-07-18 10:34] LABS: Hematocrit 28.4 % (37.0-53.0); Hemoglobin 9.2 g/dL (13.5-17.5)
[2019-07-18 16:43] LABS: Hematocrit 29.2 % (37.0-53.0); Hemoglobin 9.3 g/dL (13.5-17.5)
--- NOTE | 2019-07-18 16:50 | NUR ---
PT IS A/OX3, PLEASANT AND COOPERATIVE, THE PT IS UP WITH ASSIST, THE PT WAS MEDICATED FOR CHRONIC PAIN T/O THE DAY THE. THE PT WAS GIVEN A UNIT OF PRBC'S TODAY AND TOLERATED THE INFUSION WELL, THE PT WAS UP WITH THE PHYSICAL THERAPIST TODAY AND AMBULATED IN THE ROOM TO THE DOORWAY, THE PT POTTS CATHETER WAS DC'D PER MD ORDERS, PT APPEARS TO BE BREATHING EASILY AT REST ON ROOM AIR, THE PT WEARS O2 PRN, CALL LIGHT IN REACH, WILL CONTINUE TO MONITOR AND ASSESS FRO CHANGES
[2019-07-18 22:38] LABS: Hematocrit 29.5 % (37.0-53.0); Hemoglobin 9.3 g/dL (13.5-17.5)
[2019-07-19 04:48] LABS: BASOPHILS ABSOLUTE AUTO 0.02 K/mm3 (0.00-0.23); BASOPHILS PERCENT AUTO 0 % (0-2); EOSINOPHILS ABSOLUTE AUTO 0.01 K/mm3 (0.00-0.68); EOSINOPHILS PERCENT AUTO 0 % (0-6); Hematocrit 28.6 % (37.0-53.0); Hemoglobin 9.3 g/dL (13.5-17.5); IMMATURE GRAN ABSOLUTE AUTO 0.08 K/mm3 (0.00-0.10); IMMATURE GRAN PERCENT AUTO 1 % (0-1); LYMPHOCYTES ABSOLUTE AUTO 0.98 K/mm3 (0.84-5.20); LYMPHOCYTES PERCENT AUTO 12 % (21-46); MONOCYTES ABSOLUTE AUTO 1.01 K/mm3 (0.16-1.47); MONOCYTES PERCENT AUTO 13 % (4-13); Mean Corpuscular HGB 33.2 pg (26.0-34.0); Mean Corpuscular HGB Conc 32.5 g/dL (31.5-36.5); Mean Platelet Volume 9.4 fL (9.1-12.4); NEUTROPHILS ABSOLUTE AUTO 5.96 K/mm3 (1.96-9.15); NEUTROPHILS PERCENT AUTO 74 % (41-73); NRBC ABSOLUTE 0.02 K/mm3 (0.00-0.02); NRBC Auto 0.2 /100 WBC (0.0-0.2); Platelet Count 272 K/mm3 (150-400); RDW Coefficient Variation 17.6 % (11.7-14.2); RDW Standard Deviation 65.1 fL (35.1-46.3); White Blood Cell Count 8.06 K/mm3 (4.00-11.30)
[2019-07-19 04:50] LABS: Mean Corpuscular Volume 102 fL (80-100)
[2019-07-19 05:06] LABS: Anion Gap 5 mmol/L (6-16); Blood Urea Nitrogen 15 mg/dL (8-24); Bun/Creatinine Ratio 30.5 (12.0-20.0); CO2, Blood 35 mmol/L (21-32); Calcium, Blood 8.4 mg/dL (8.5-10.1); Chloride, Blood 95 mmol/L (98-108); Creatinine, Blood 0.49 mg/dL (0.60-1.20); Glomerular Filtration Rate >60 (60-); Glucose, Blood 113 mg/dL (70-99); Potassium, Blood 3.5 mmol/L (3.5-5.5); Sodium, Blood 135 mmol/L (136-145)
--- NOTE | 2019-07-19 07:20 | NUR ---
SHIFT SUMMARY PT IS A 68 Y/O MALE, ADMITTED FOR COPD EXACERBATION AND A POSSIBLE GI BLEED. HE WAS MEDICATED TWICE FOR CHRONIC LEG PAIN WITH PRN OXYCODONE. HE ALSO REPORTED ABD PAIN/INDIGESTION. THE HOSPITALIST SAMMIE BAUTISTA WAS CONSULTED AND A ONE TIME DOSE OF MAALOX ORDERED. NO COMPLAINTS OF SOB. PT'S VITALS REMAINED STABLE ON 2L OF O2 PRN. NO OTHER ACUTE CHANGES IN PT CONDITION NOTED. REPORT GIVEN TO ONCOMING NURSE.
--- NOTE | 2019-07-19 18:00 | NUR ---
PT A/OX3, PLEASANT AND COOPERATIVE, THE PT APPEARS TO BE BREATHING EASILY AT REST ON RA, THE PT WAS MEDICATED FOR PAIN T/O THE SHIFT, THE PT DENIED N/V HOWEVER HAD POOR APPETITE, THE PT WAS UP TODAY WITH THE PHYSICAL THEAPIST AND THE OCCUPATIONAL THERAPIST, UP TO THE CHAIR AND AMBULATED OUT INTO THE GREGORY WITH THE FWW, PRN BREATHING TX'S WERE GIVEN T/O THE DAY, CALL LIGHT IN REACH, NO OTHER CHANGES NOTICED THIS SHIFT
--- NOTE | 2019-07-20 06:21 | NUR ---
SHIFT SUMMARY PT IS A 68 Y/O MALE, ADMITTED FOR COPD EXACERBATION AND A POSSIBLE GI BLEED. HE IS A&O X 4, AND A 1PA UP WITH A WALKER IN THE ROOM. THE PT WAS MEDICATED TWICE FOR CHRONIC LEG AND BACK PAIN WITH PRN OXYCODONE, THOUGH HE SAID THAT "6 HOURS IS TOO LONG TO WAIT" FOR PAIN MEDS. NO COMPLAINTS OF NAUSEA OR ACUTE SOB. VITAL SIGNS STABLE. NO OTHER ACUTE CHANGES IN PT CONDITION NOTED DURING THE NIGHT. WILL CONTINUE TO MONITOR AND TREAT PER EMAR UNTIL HAND OFF TO DAY SHIFT RN.
[2019-07-20] MEDS ORDERED: DOCU100 PO (10:14)
[2019-07-20] MEDS ORDERED: FAMO20 PO (10:15)
[2019-07-20] MEDS ORDERED: OXYC5 PO (10:15)
[2019-07-20] MEDS ORDERED: PRED20 (10:17)
[2019-07-20] MEDS ORDERED: SUCR1 PO (10:18)
[2019-07-20] MEDS ORDERED: TAMS.4ER PO (10:18)
[2019-07-20 14:06] LABS: PANEL 138901 Negative (Negative)
--- NOTE | 2019-07-28 09:27 | NUR ---
Outpatient Follow up: Phone call on 07/27/19 Palliative care received call from pt. He states that he is "writhing in pain," and crying, not moving around due to pain, and reports, "I don't know what to do." He reports that his [place] doctor, Dr. Wolf, has discontinued his oxycodone; a medication that he has taken for years due to chronic pain in his back and legs. He reports stents in his legs that get very painful. He has now requested a different provider - he reports he cannot get into see the new provider for 6 weeks. Pt states that Dr. Wolf prescribed Lyrica, which he cannot pick up attendant for 4 weeks, as he has been told that it takes this long for insurance to approve new medications. Pt was recently discharged from [facility] on 07/20/19. He was discharged with instructions to continue home prescription of oxycodone 5-10mg q 6 hours PRN. Call placed to [place] Palliative Care Team. This RN was instructed to have pt call the pt advocate to assist in problem solving. Call placed to Dr. Wolf's office to speak with the nurse. Left message requesting a return call to address symptoms. Have not received a call back as of today, 07/28. Returned call to patient. Palliative care suggested pt to talk to pt advocate at [place]. Number obtained and given to pt. Pt high risk of readmission due to uncontroled pain and untreated symptoms. Will fax notes along with discharge instructions to Dr. Wolf's office at [phone] call to pt to check up on him.
== END 2019-07-20 12:05 | disposition home health service (06) | DRG 189 ==
LOC: ER 13:16 → PCU 13:17 → MEDS 07-16 15:16 → ENPENDDIS 07-20 09:20 → MEDS 07-20 12:05
PROVIDERS: Emergency Medicine; Family Medicine; ADMIT Internal Medicine
PROC: 30233N1 Transfusion of Nonautologous Red Blood Cells into Peripheral Vein, Percutaneous Approach (ICD-10-PCS; principal; 2019-07-15)
DX: J96.21 Acute and chronic respiratory failure with hypoxia (principal); E43 Unspecified severe protein-calorie malnutrition; G92 Toxic encephalopathy; J44.1 Chronic obstructive pulmonary disease with (acute) exacerbation; R65.10 Systemic inflammatory response syndrome (SIRS) of non-infectious origin without acute organ dysfunction; N17.9 Acute kidney failure, unspecified; F11.20 Opioid dependence, uncomplicated; Z68.1 Body mass index [BMI] 19.9 or less, adult; I48.0 Paroxysmal atrial fibrillation; I10 Essential (primary) hypertension; I73.9 Peripheral vascular disease, unspecified; G89.29 Other chronic pain; R33.9 Retention of urine, unspecified; E86.0 Dehydration; K21.9 Gastro-esophageal reflux disease without esophagitis; K20.9 Esophagitis, unspecified; D63.8 Anemia in other chronic diseases classified elsewhere; D50.9 Iron deficiency anemia, unspecified; K26.7 Chronic duodenal ulcer without hemorrhage or perforation; F17.210 Nicotine dependence, cigarettes, uncomplicated
CPT/HCPCS: 36415; 36430; 36600; 51702; 71045; 76700; 80047; 80048; 80053; 81001; 82272; 82378; 82728; 82803; 83540; 83550; 84145; 85014; 85018; 85025; 85610; 85730; 86702; 86850; 86900; 86901; 86923; 93005; 93010; 94640; 94660; 94760; 94761; 94762; 96361; 96365; 96375; 97110; 97116; 97162; 97165; 97530; 99285-25; A9270; C1751; C9113; G0103; J1170; J1200; J2916; J2930; J3010; J7030; J7120; J7512; P9016

== ENCOUNTER 2019-08-07 14:43 | Observation (INO) | payer OTHER ==
[~2019-08-07] VITALS: Ht 180.3 cm; Wt 47.7 kg
[~2019-08-07 14:43] MED LIST changes: +ACET325 PO; +ASCO500 PO; +FAMO20 PO; +FERSU300 PO; +Mucinex600 MG PO; +OXYC5 PO; +PRED20; +VITAMIN D31000 UNIT PO
[2019-08-07 15:28] LABS: BASOPHILS ABSOLUTE AUTO 0.03 K/mm3 (0.00-0.23); BASOPHILS PERCENT AUTO 1 % (0-2); EOSINOPHILS ABSOLUTE AUTO 0.01 K/mm3 (0.00-0.68); EOSINOPHILS PERCENT AUTO 0 % (0-6); Hematocrit 29.1 % (37.0-53.0); Hemoglobin 9.3 g/dL (13.5-17.5); IMMATURE GRAN ABSOLUTE AUTO 0.03 K/mm3 (0.00-0.10); IMMATURE GRAN PERCENT AUTO 1 % (0-1); LYMPHOCYTES ABSOLUTE AUTO 0.91 K/mm3 (0.84-5.20); LYMPHOCYTES PERCENT AUTO 19 % (21-46); MONOCYTES ABSOLUTE AUTO 0.98 K/mm3 (0.16-1.47); MONOCYTES PERCENT AUTO 21 % (4-13); Mean Corpuscular HGB 34.4 pg (26.0-34.0); Mean Corpuscular Volume 108 fL (80-100); Mean Platelet Volume 9.5 fL (9.1-12.4); NEUTROPHILS ABSOLUTE AUTO 2.81 K/mm3 (1.96-9.15); NEUTROPHILS PERCENT AUTO 59 % (41-73); NRBC ABSOLUTE 0.03 K/mm3 (0.00-0.02); NRBC Auto 0.6 /100 WBC (0.0-0.2); Platelet Count 443 K/mm3 (150-400); RDW Coefficient Variation 19.1 % (11.7-14.2); RDW Standard Deviation 74.4 fL (35.1-46.3); White Blood Cell Count 4.77 K/mm3 (4.00-11.30)
[2019-08-07 15:50] LABS: Alanine Aminotransfer (ALT/SGP 29 U/L (12-78); Albumin/Globulin Ratio 0.9 (0.8-1.8); Alk Phos 77 U/L (50-136); Anion Gap 5 mmol/L (6-16); Aspartate Aminotrans (AST/SGOT 25 U/L (12-37); Bilirubin, Total 0.4 mg/dL (0.1-1.0); Blood Urea Nitrogen 21 mg/dL (8-24); Bun/Creatinine Ratio 37.1 (12.0-20.0); CO2, Blood 29 mmol/L (21-32); Calcium, Blood 8.3 mg/dL (8.5-10.1); Chloride, Blood 103 mmol/L (98-108); Creatinine, Blood 0.57 mg/dL (0.60-1.20); Globulin, Blood 3.2 g/dL (2.2-4.0); Glomerular Filtration Rate >60 (60-); Glucose, Blood 105 mg/dL (70-99); Potassium, Blood 4.4 mmol/L (3.5-5.5); Sodium, Blood 137 mmol/L (136-145); Total Protein, Blood 6.2 g/dL (6.4-8.2)
[2019-08-07] MEDS ORDERED: PREG75 PO (18:16)
[2019-08-07] MEDS ORDERED: DIAZ5 PO (19:55)
[2019-08-07 23:32] LABS: Hematocrit 28.5 % (37.0-53.0); Hemoglobin 9.1 g/dL (13.5-17.5)
[2019-08-08 05:17] LABS: Hematocrit 27.9 % (37.0-53.0); Hemoglobin 8.9 g/dL (13.5-17.5)
--- NOTE | 2019-08-08 06:04 | NUR ---
ADMIT/SHIFT SUMMARY (NOC) PATIENT ARRIVED TO UNIT VIA RNEY FROM ER; AMBULATED FROM GURNEY TO UNIT BED. PATIENT VERBALIZED CHRONIC ON GOING PAIN FROM IS RA AND VERTEBRA FX HISTORY - PATIENT MEDICATED PER EMAR. PATIENT REMAINED ALERT AND ORIENTED T/O SHIFT TO SELF,LOCATION AND SITUATION - PATIENT WEAK AND TIRED T/O SHIFT. PATIENT PALE AND CHRONICALLY ILL IN APPEARANCE - PATIENT SMOKE 1/2 PACK DAILY FOR LAST 40 YEARS - HAS HISTORY OF GI BLEEDS. MD MONTES DE OCA FOLLOWING PATIENT AND SAW PATIENT IN ER - ORDERS IN. PATIENT STARTED ON GO LIGHTLY - PATIENT UNABLE TO CONSUME ALL OF GO LIGHTLY DUE TO FATIGUE/WEAKNESS AND GI UPSET. PROTONIX GTT RUNNING T/O SHIFT. PATIENT REMAINS IN NSR W/ PVC T/O SHIFT PER END USER SUPPORT SPECIALIST WITH NO ACUTE CARDIAC EVENTS NOTED. PATIENT CACHEXIC AND REPORTS THAT HE HAS LOST OVER 30 LBS IN LAST FEW YEARS - DIETITIAN CONSULT IN PLACE. NO STOOLS NOTED THIS SHIFT. CALL LIGHT W/I REACH; WILL CONTINUE TO MONITOR AND REPORT TO DAYSHIFT RN.
--- NOTE | 2019-08-08 08:00 | NUR ---
08/08/19 0800 Emil Verde History, Chart, Medications and Allergies reviewed before start of procedure.MONITOR INTACT WITH CONTINUOUS PULSE OXIMETRY AND INTERMITTENT BP.3-LEAD EKG REVIEWED WITH PHYSICIAN PRIOR TO START OF PROCEDURE.O2 VIA N/C INTACT THROUGHOUT SEDATION/PROCEDURE. Patient confirms NPO status and agrees with scheduled surgery.PATIENT DETERMINED TO BE ASA APPROPRIATE FOR PROPOFOL SEDATION PRIOR TO START OF PROCEDURE BY DR. MONTES DE OCA.
[2019-08-08 11:33] LABS: Hematocrit 30.8 % (37.0-53.0); Hemoglobin 9.6 g/dL (13.5-17.5)
[2019-08-08 16:59] LABS: Hemoglobin 9.4 g/dL (13.5-17.5)
--- NOTE | 2019-08-08 17:07 | NUR ---
SHIFT SUMMARY PT HAD UPPER ENDO COMPLETED THIS AM. PT TO CONTINUE CAILIN TO HAVE COLONOSCOPY TOMORROW. PT HAS HAD 1 SMALL LOOSE BROWN BM. PT EDUCATED THAT STOOL MUST BE CLEAR. NO OTHER CHANGES IN ASSESSMENT AT THIS TIME. VSS. PT MEDICATED FOR PAIN/NAUSEA 2X THIS SHIFT. WILL CONTINUE TO MONITOR UNTIL TURNOVER IS COMPLETE. PT TO BE NPO AT 1800.
--- NOTE | 2019-08-08 18:47 | NUR ---
BOWEL PREP DR. SOTO CALLED & NOTIFIED THAT PT BMS ARE STILL VERY BROWN. ORDERED A SECOND GOLYTELY. PT MUST BE CLEAR BEFORE COLONOSCOPY CAN OCCUR.
[2019-08-08 23:42] LABS: Hematocrit 27.1 % (37.0-53.0); Hemoglobin 8.6 g/dL (13.5-17.5)
--- NOTE | 2019-08-09 04:39 | NUR ---
SHIFT SUMMARY- PT. SCHEDULED FOR COLONOSCOPY IN THE AM. GOLYTELY GIVEN PER EMAR. PT. CONTINUES TO HAVE SEVERAL LIQUID BROWN STOOLS. C/O PAIN IN THE ABD AND BACK. PAIN MED AND NA GIVEN PER EMAR. NO APPARENT DISTRESS NOTED. CALL LIGHT WITHIN REACH AND SIDE RAILS UP X2. WILL CONT TO MONITOR.
[2019-08-09 05:22] LABS: Hematocrit 30.3 % (37.0-53.0); Hemoglobin 9.6 g/dL (13.5-17.5)
[2019-08-09 11:35] LABS: Hematocrit 28.6 % (37.0-53.0); Hemoglobin 9.3 g/dL (13.5-17.5)
--- NOTE | 2019-08-09 17:35 | NUR ---
SHIFT SUMMARY PATIENT IS PLEASANT. HE HAD A COLONOSCOPY TODAY AND HAD A TOTAL OF [address] MONTES DE OCA IS PLANNING ON GOING BACK TO ANOTHER COLONOSCOPY TOMORROW. PATIENT STARTS PREP AT 0900 AND WILL BE NPO @ 1400 ON 08/10/19. PATIENT IS AWARE AND PLEASANT.
--- NOTE | 2019-08-10 05:02 | NUR ---
SHIFT SUMMARY- PT. ASLEEP T/O THE NIGHT. NO APPARENT DISTRESS NOTED. PROTONIX DRIP INFUSING, PT. TOLERATING WELL. PRN PAIN AND NA MED GIVEN PER EMAR. PT. SCHEDULED FOR REPEAT COLONOSCOPY THIS AFTERNOON. PREP TO BEGIN THIS AM. DENIED ANY NEEDS AT THIS TIME. CALL LIGHT WITHIN REACH AND SIDE RAILS UP X2. WILL CONT TO MONITOR.
--- NOTE | 2019-08-10 08:15 | NUR ---
PT PLEASANT COOP A/O. STATES PAIN IN BACK TRIES TO GET TO 6 WHEN CAN. MED PER EMAR. H/R REG, NO MURMER NOTED. PER TELE: NSR AT 85, WITH PVC'S. LUNGS ARE DIM T/O. ON R.A. BT X4 ALST BM TODAY. ON [employer] FOR SCOPE THIS AFT. VOIDS BSC. STOOL IS WATERY, LIGHT RED TINGING MIXED. BED IN LOW POSITION, CALL LITE IN REACH, CALLS APPROP
--- NOTE | 2019-08-10 15:46 | NUR ---
OUT FOR SCOPE AT 7954
--- NOTE | 2019-08-10 16:39 | NUR ---
08/10/19 1639 Svetlana Purvis History, Chart, Medications and Allergies reviewed before start of procedure. 3-LEAD EKG REVIEWED WITH PHYSICIAN PRIOR TO START OF PROCEDURE. MONITOR INTACT WITH CONTINUOUS PULSE OXIMETRY AND INTERMITTENT BP. O2 VIA N/C INTACT THROUGHOUT SEDATION/PROCEDURE. PATIENT DETERMINED TO BE ASA APPROPRIATE FOR PROPOFOL SEDATION PRIOR TO START OF PROCEDURE BY DR. MONTES DE OCA.
--- NOTE | 2019-08-10 18:14 | NUR ---
BACK FROM DAY SURG. PT A/O. TALKING. STATES READY TO EAT. WAITING ORDERS
--- NOTE | 2019-08-10 19:15 | NUR ---
PT BACK FROM SCOPE. DID WELL PER BEDSIDE REPORT. SPOKE TO DR MONTES DE OCA. OKAYED REGULAR DIET. CHANGED TO [facility] SOFT PER PT REQUEST R/T TEETH. DR TO CONTINUE WRITING ORDERS PER DISCUSSION. PT STATES FEELS PRETTY WELL, HOWEVER JUST REQUESTING PAIN MED. PASSED TO SCOTT WAYNE. BED IN LOW POSITION, CALL LITE IN REACH, CALLS APPROP
--- NOTE | 2019-08-11 04:18 | NUR ---
SHIFT SUMMARY- PT. SLEPT WELL T/O THE NIGHT, NO APPARENT DISTRESS NOTED. PAIN MED PRN. HAD SANDWICH AND ICE CREAM FOR DINNER, TOLERATED WELL. DENIED ANY OTHER NEEDS. CALL LIGHT WITHIN REACH AND SIDE RAILS UP X2. WILL CONT TO MONITOR.
--- NOTE | 2019-08-11 08:00 | NUR ---
PT PLEASANT COOP A/O X3. STATES FEELS MUCH BETTER. NO PAIN. DENIES ANY BLOOD PER RECTUM. H/R REG, NO MURMER NOTED. PER TELE NSR 1' BLOCK AT 95. LUNGS QUITE DIM T/O. RESP EASY, UNLABORED. ON R/A. BT X4 LAST BM LAST NITE. VOIDS BSC INDPENDANT IN ROOM. BED IN LOW POSITION, CALL LITE IN REACH, CALLS APROP
[2019-08-11] MEDS ORDERED: GUAI600T33 PO (11:02)
--- NOTE | 2019-08-11 11:25 | NUR ---
DISCHARGE REVIEWED WITH PT. PT VERBALIZED UNDERSTANDING OF MEDS AND INSTRUCT. IV PULLED INTACT. TELE REMOVED. PT TO DRESS SELF AND CALL FOR RIDE.
--- NOTE | 2019-08-11 11:51 | NUR ---
PT OUT DOOR AT 1240 BY [place]
== END 2019-08-11 11:39 | disposition home or self-care (01) ==
LOC: ER 14:43 → MEDS 14:44 → ENPENDDIS 08-11 10:46 → MEDS 08-11 11:39
PROVIDERS: Emergency Medicine; Internal Medicine Gastroenterology; ADMIT Internal Medicine
PROC: 0D768ZZ Dilation of Stomach, Via Natural or Artificial Opening Endoscopic (ICD-10-PCS; 2019-08-08)
PROC: 0DB28ZX Excision of Middle Esophagus, Via Natural or Artificial Opening Endoscopic, Diagnostic (ICD-10-PCS; principal; 2019-08-08 08:00)
PROC: 0DB18ZX Excision of Upper Esophagus, Via Natural or Artificial Opening Endoscopic, Diagnostic (ICD-10-PCS; 2019-08-08 08:00)
PROC: 0W3P8ZZ Control Bleeding in Gastrointestinal Tract, Via Natural or Artificial Opening Endoscopic (ICD-10-PCS; 2019-08-08 08:00)
PROC: 3E0H8GC Introduction of Other Therapeutic Substance into Lower GI, Via Natural or Artificial Opening Endoscopic (ICD-10-PCS; 2019-08-09)
PROC: 0DBP8ZZ Excision of Rectum, Via Natural or Artificial Opening Endoscopic (ICD-10-PCS; 2019-08-09)
PROC: 0DBL8ZZ Excision of Transverse Colon, Via Natural or Artificial Opening Endoscopic (ICD-10-PCS; 2019-08-09)
PROC: 0DBN8ZZ Excision of Sigmoid Colon, Via Natural or Artificial Opening Endoscopic (ICD-10-PCS; 2019-08-09)
PROC: 0DBK8ZZ Excision of Ascending Colon, Via Natural or Artificial Opening Endoscopic (ICD-10-PCS; 2019-08-09)
PROC: 0DBK8ZZ Excision of Ascending Colon, Via Natural or Artificial Opening Endoscopic (ICD-10-PCS; 2019-08-10)
DX: D12.2 Benign neoplasm of ascending colon (principal); D12.5 Benign neoplasm of sigmoid colon; D12.3 Benign neoplasm of transverse colon; D12.8 Benign neoplasm of rectum; K64.4 Residual hemorrhoidal skin tags; K59.00 Constipation, unspecified; K31.811 Angiodysplasia of stomach and duodenum with bleeding; K22.10 Ulcer of esophagus without bleeding; K27.4 Chronic or unspecified peptic ulcer, site unspecified, with hemorrhage; K31.89 Other diseases of stomach and duodenum; K44.9 Diaphragmatic hernia without obstruction or gangrene; J44.9 Chronic obstructive pulmonary disease, unspecified; I48.0 Paroxysmal atrial fibrillation; I73.9 Peripheral vascular disease, unspecified; D50.9 Iron deficiency anemia, unspecified; E43 Unspecified severe protein-calorie malnutrition; G89.29 Other chronic pain; Z87.891 Personal history of nicotine dependence; Z79.899 Other long term (current) drug therapy; Z79.51 Long term (current) use of inhaled steroids; Z79.52 Long term (current) use of systemic steroids
CPT/HCPCS: 36415; 80053; 82272; 85014; 85018; 85025; 86850; 86900; 86901; 88305; 93005; 93010; 94640; 94760; 96365; 96366; 96375; 96376; 99285-25; A9270; C9113; G0378; J2250; J2405; J2704; J3010; J7030; J7050; J7120

== ENCOUNTER 2020-01-06 17:54 | Emergency (ER) | payer OTHER ==
[~2020-01-06] VITALS: Ht 180.3 cm; Wt 46.7 kg
[~2020-01-06 17:54] MED LIST changes: +GUAI600T33 PO; +PREG75 PO
== END 2020-01-06 20:08 | disposition home or self-care (01) ==
LOC: ER 17:54
DX: J44.9 Chronic obstructive pulmonary disease, unspecified (principal); K21.9 Gastro-esophageal reflux disease without esophagitis; I48.0 Paroxysmal atrial fibrillation; I10 Essential (primary) hypertension; I73.9 Peripheral vascular disease, unspecified; F17.200 Nicotine dependence, unspecified, uncomplicated; Z79.51 Long term (current) use of inhaled steroids; Z79.899 Other long term (current) drug therapy
CPT/HCPCS: 94644; 99284-25